=== PATIENT | male | born 1955 | race Caucasian/White ===

== ENCOUNTER 2020-06-22 09:23 | Inpatient (IN) | payer SELFPAY ==
[~2020-06-22] VITALS: Ht 172.7 cm; Wt 89.7 kg
[2020-06-22] VITALS (9 sets, daily range): BP systolic 145–175; BP diastolic 63–98
[2020-06-22] MEDS ORDERED: LABETALOL 20 MG/4 ML DISP.SYRIN. IVP ONE (09:45)
[2020-06-22 10:00] LABS: BASO # 0.1 x10^3/uL (0.0-0.2); BASO % 1 % (0-3); EOS # 0.2 x10^3/uL (0.0-0.7); EOS % 2 % (0-3); HEMATOCRIT 54.7 % (39.0-53.0); HEMOGLOBIN 18.5 g/dL (13.0-17.5); LYMPH # 1.1 x10^3/uL (1.0-4.8); LYMPH % 8 % (24-48); MEAN CORPUSCULAR HEMOGLOBIN 27 pg (25-35); MEAN CORPUSCULAR HGB CONC 34 g/dL (31-37); MEAN CORPUSCULAR VOLUME 80 fL (79-100); MONO # 1.2 x10^3/uL (0.0-1.1); MONO % 9 % (0-9); NEUT # 11.1 x10^3/uL (1.8-7.7); NEUT % 81 % (31-73); PLATELET COUNT 622 x10^3/uL (140-400); RED BLOOD COUNT 6.81 x10^6/uL (4.30-5.70); RED CELL DISTRIBUTION WIDTH 14.7 % (11.5-14.5); WHITE BLOOD COUNT 13.6 x10^3/uL (4.0-11.0)
--- NOTE | 2020-06-22 10:05 | PHYS DOC ---
General Adult EDM: Chief Complaint: UPPER EXTREMITY PAIN HPI: HPI: Patient is a 65 year old male with no significant medical history presenting today complaining of difficulty moving the left upper extremity, symptoms began yesterday when he woke up in the morning. Patient is also complaining of weakne ss to the left upper extremity. Patient denies any injuries. Denies any chest pain or shortness of breath. Denies any pain to the left upper extremity. Review of Systems: Review of Systems: Constitutional: Denies fever or chills. [] Eyes: Denies change in visual acuity. [] HENT: Denies nasal congestion or sore throat. [] Respiratory: Denies cough or shortness of breath. [] Cardiovascular: Denies chest pain or edema. [] GI: Denies abdominal pain, nausea, vomiting, bloody stools or diarrhea. [] : Denies dysuria. [] Musculoskeletal: Reports weakness and difficulty moving the left upper extremity, denies back pain or joint pain. [] Integument: Denies rash. [] Neurologic: Denies headache, focal weakness or sensory changes. [] Psychiatric: Denies depression or anxiety. [] Heart Score: Risk Factors: Risk Factors: DM, Current or recent (<one month) smoker, HTN, HLP, family history of CAD, obesity. Risk Scores: Score 0 - 3: 2.5% MACE over next 6 weeks - Discharge Home Score 4 - 6: 20.3% MACE over next 6 weeks - Admit for Clinical Observation Score 7 - 10: 72.7% MACE over next 6 weeks - Early Invasive Strategies Current Medications: Current Medications Medications (Trade) Dose Ordered Sig/[facility] Start Time Stop Time Status Last Admin Dose Admin Labetalol HCl (Normodyne Iv Push) 10 mg 1X ONCE 06/22/20 09:45 06/22/20 09:46 UNV Physical Exam: PE: Constitutional: Well developed, well nourished, no acute distress, non-toxic appearance. [] HENT: Normocephalic, atraumatic, bilateral external ears normal, oropharynx moist, no oral exudates, nose normal. Poor dentition Eyes: PERRLA, EOMI, conjunctiva normal, no discharge. [] Neck: Normal range of motion, no tenderness, supple, no stridor. [] Cardiovascular:Heart rate regular rhythm, no murmur [] Lungs & Thorax: Bilateral breath sounds clear to auscultation [] Abdomen: Bowel sounds normal, soft, no tenderness, no masses, no pulsatile masses. [] Skin: Warm, dry, no erythema, no rash. [] Back: No tenderness, no CVA tenderness. [] Extremities: No tenderness, no cyanosis, no clubbing, ROM intact, trace edema noted to the left upper extremity, 3/5 strength of the left upper extremity, 5/5 strength to the right upper extremity. Limited range of motion to the left upper extremity. Neurologic: Alert and oriented X 3, normal motor function, normal sensory function, no focal deficits noted. Cranial nerves II through XII intact Psychologic: Affect normal, judgement normal, mood normal. [] EKG: EK interpreted by Dr. Aaron sinus rhythm HR 75 no STEMI Radiology/Procedures: Radiology/Procedures: []PROCEDURE: CT HEAD WO CONTRAST EXAM: CT Head without IV contrast CLINICAL HISTORY: Reason: left arm weakness COMPARISON: None. TECHNIQUE: Routine CT of the head without contrast. PQRS compliance statement - One or more of the following individualized dose reduction techniques were utilized for this study: 1. Automated exposure control 2. Adjustment of the mA and/or kV according to patient size 3. Use of iterative reconstruction technique FINDINGS: There is no evidence of hemorrhage, mass or extra-axial fluid collection. Focal low-attenuation at the left posterior occipital region, with mild associated insufflation likely from prior infarct. Day-white differentiation is otherwise maintained with no evidence of edema. Subcortical, periventricular as well as deep white matter hypoattenuation likely changes of chronic small vessel disease. There is no mass effect or shift of the intracranial structures. The ventricles, basilar cisterns and cortical sulci are normal in size and configuration for the patients stated age. The cerebellum and brainstem are unremarkable. The calvarium demonstrates no evidence of fracture or focal lesion. There is normal aeration of the visualized paranasal sinuses and mastoid air cells. The visualized portions of the orbits are normal. Debris is seen within the right external auditory canal. IMPRESSION: 1. No evidence for acute intracranial process. 2. Focal encephalomalacia with loss of paul-white differentiation in the left occipital region likely from prior infarct. If there is clinical concern for acute on chronic infarct, MRI is recommended. 3. White matter changes likely of chronic small vessel disease. Electronically signed by: Addy Barillas MD (06/22/2020 10:39 AM) [id number] DICTATED and SIGNED BY: ADDY BARILLAS MD DATE: 06/22/20 [id number] 0 PROCEDURE: PORTABLE CHEST 1V AP chest. HISTORY: Left arm weakness AP view was taken of the chest. There is no pneumothorax or pleural effusion. Heart is normal in size. There are no acute infiltrates. IMPRESSION: 1. No acute infiltrates. Electronically signed by: Zack Novoa MD (06/22/2020 10:13 AM) [id number] DICTATED and SIGNED BY: ZACK NOVOA MD DATE: 06/22/20 [id number] 0 Course & Med Decision Making: Course & Med Decision Making Pertinent Labs and Imaging studies reviewed. (See chart for details) This is a 65-year-old male patient presenting to the ED today complaining of difficulty moving the left upper extremity as well as weakness to the left upper extremity that he noted yesterday in the morning when he woke up. Stroke scale 2. CT of the head is negative for any acute findings. CBC with a WBC of 13.6, hemoglobin 18.5, hematocrit 54.7. Creatinine 1.5, BUN is normal. Chest x-ray is negative. Blood pressure on arrival to the ED 243/125 with a heart rate of 75, no previous history of hypertension the patient does not see a primary care doctor. Patient was given labetalol. Blood pressure continued to stay high at 210/123 with a heart rate of 75 Started on the cardiac pain drip. Spoke with Dr. Hand who accepted patient for admission. [address] Gordon who stated he will order an MRI on patient Dr. Aaron made aware of patient's condition Radiologist called stating patient has right CVA noted on MRI of the brain. [address] Gordon regarding patient's CVA. Dragon Disclaimer: Dragantoine Disclaimer: This electronic medical record was generated, in whole or in part, using a voice recognition dictation system. NIHSS Stroke Scale NIH Stroke Scale: NIH Stroke Scale Response (Comments) Value Level of Consciousness: 0 Alert/Responsive 0 LOC Questions: 0 Answers both correctly 0 Best Gaze: 0 Normal 0 Visual: 0 No visual loss 0 Facial Palsy: 0 Normal, symmetrical 0 Motor - Left Arm 2 Some effort 2 Motor - Right Arm 0 No drift 0 Motor - Left Leg 0 No drift 0 Motor: Right Leg 0 No drift 0 Limb Ataxia: 0 Absent 0 Sensory: 0 No loss 0 Best Language: 0 Normal 0 Dysathria: 0 Normal 0 Extinction and Inattention: 0 Normal 0 Total 2 Departure Departure Impression: Primary Impression: Hypertensive urgency Additional Impressions: RADHA (acute kidney injury) Left arm weakness Disposition: 09 ADMITTED INPT THIS HOSP Condition: STABLE Referrals: NO PCP (PCP) NABIL CHANDLER APRN Jun 22, 2020 10:05
[2020-06-22 10:08] LABS: CALCIUM 9.1 mg/dL (8.5-10.1); CREATININE 1.8 mg/dL (0.7-1.3); GFR 38.3
[2020-06-22 10:12] LABS: ALBUMIN 4.3 g/dL (3.4-5.0); ALBUMIN/GLOBULIN RATIO 1.3 (1.0-1.7); MAGNESIUM 2.2 mg/dL (1.8-2.4); TOTAL BILIRUBIN 1.9 mg/dL (0.2-1.0); TOTAL PROTEIN 7.7 g/dL (6.4-8.2)
[2020-06-22 10:18] LABS: PROTHROMBIN TIME PATIENT 14.2 SEC (11.7-14.0)
--- NOTE | 2020-06-22 10:55 | RAD ---
EXAM: CT Head without IV contrast CLINICAL HISTORY: Reason: left arm weakness COMPARISON: None. TECHNIQUE: Routine CT of the head without contrast. PQRS compliance statement - One or more of the following individualized dose reduction techniques wer e utilized for this study: 1. Automated exposure control 2. Adjustment of the mA and/or kV according to patient size 3. Use of iterative reconstruction technique FINDINGS: There is no evidence of hemorrhage, mass or extra-axial fluid collection. Focal low-attenuation at the left posterior occipital region, with mild associated insufflation likel y from prior infarct. Day-white differentiation is otherwise maintained with no evidence of edema. S ubcortical, periventricular as well as deep white matter hypoattenuation likely changes of chronic sm all vessel disease. There is no mass effect or shift of the intracranial structures. The ventricles, basilar cisterns and cortical sulci are normal in size and configuration for the soha ents stated age. The cerebellum and brainstem are unremarkable. The calvarium demonstrates no evidence of fracture or focal lesion. There is normal aeration of the visualized paranasal sinuses and mastoid air cells. The visualized portions of the orbits are normal. Debris is seen within the right external auditory c anal. IMPRESSION: 1. No evidence for acute intracranial process. 2. Focal encephalomalacia with loss of paul-white differentiation in the left occipital region likel y from prior infarct. If there is clinical concern for acute on chronic infarct, MRI is recommended. 3. White matter changes likely of chronic small vessel disease. Electronically signed by: Addy Mendiola MD (06/22/2020 10:39 AM) [id number]
--- NOTE | 2020-06-22 10:55 | RAD ---
AP chest. HISTORY: Left arm weakness AP view was taken of the chest. There is no pneumothorax or pleural effusion. Heart is normal in size . There are no acute infiltrates. IMPRESSION: 1. No acute infiltrates. Electronically signed by: Zack Novoa MD (06/22/2020 10:13 AM) [id number]
[2020-06-22 12:50] LABS: BILIRUBIN,URINE NEGATIVE (NEG); CLARITY,URINE CLEAR; COLOR,URINE YELLOW; NITRITE,URINE NEGATIVE (NEG); PH,URINE 5.5 (<5.0-8.0); PROTEIN,URINE NEGATIVE (NEG-TRACE); UROBILINOGEN,URINE 0.2 mg/dL (0.2 mg/dL)
[2020-06-22 12:57] LABS: BARBITURATES NEG (NEG); BENZODIAZEPINES NEG (NEG); CANNABINOIDS NEG (NEG); COCAINE NEG (NEG); METHADONE NEG (NEG); OPIATES NEG (NEG); PHENCYCLIDINE NEG (NEG)
[2020-06-22 13:00] LABS: AMPHETAMINE/METHAMPHETAMINE NEG (NEG)
[2020-06-22 13:03] LABS: AMORPHOUS SEDIMENT,UR PRESENT /HPF
[2020-06-22 13:04] LABS: BACTERIA,URINE 0 /HPF (0-FEW); RBC,URINE 0 /HPF (0-2); WBC,URINE 0 /HPF (0-4)
[2020-06-22] MEDS ORDERED: MAG HYDROX/ALUMINUM HYD/SIMETH 30 ML ORAL.SUSP PO PRN (13:15)
[2020-06-22] MEDS ORDERED: MAGNESIUM HYDROXIDE 2,400 MG/30 ML ORAL.SUSP. PO PRN (13:15)
[2020-06-22] MEDS ORDERED: ACETAMINOPHEN 325 MG TABLET. PO PRN ×2 (13:15→14:45)
[2020-06-22] MEDS ORDERED: CALCIUM CARBONATE 500 MG TAB.CHEW PO PRN (13:15)
[2020-06-22] MEDS ORDERED: BISACODYL 10 MG SUPP.RECT. PR PRN (13:15)
[2020-06-22] MEDS ORDERED: ZOLPIDEM 5 MG TABLET. PO PRN (13:15)
[2020-06-22] MEDS ORDERED: ONDANSETRON PF 4 MG/2 ML VIAL. IVP PRN (13:15)
--- NOTE | 2020-06-22 13:15 | PDOC1 ---
History and Physical Date of Admission Date of Admission DATE: 06/22/20 TIME: 13:02 Identification/Chief Complaint Chief Complaint Left arm weakness Source Source: Chart review, Patient History of Present Illness History of Present Illness Patient is a 65-year-old male with no stated past medical history who presents to the ER for evaluation of left arm weakness since yesterday morning. He denies any injury or history of similar symptoms. Neurology was consulted in the ED and patient received an MRI showing small territory acute infarcts identified in the right perirolandic gyri, right montano radiata, right middle frontal gyrus and medial right occipital lobe; there is associated cytotoxic edema without significant mass effect or hemorrhage. Will admit patient for further medical management. Past Medical History Past Medical History Denies past medical history Past Surgical History Past Surgical History Denies past surgical history Family History Family History Denies significant family history Social History Smoke: No ALCOHOL: rare Drugs: None Current Medications Current Medications Current Medications Labetalol HCl (Normodyne Iv Push) 10 mg 1X ONCE IVP Last administered on 06/22/20at 10:26; Start 06/22/20 at 09:45; Stop 06/22/20 at 10:04; Status DC Nicardipine HCl 50 mg/Sodium Chloride 250 ml @ 25 mls/hr CONT PRN IV SEE I/O RECORD Last administered on 06/22/20at 12:38; Start 06/22/20 at 12:07 Aspirin (Dax Aspirin) 325 mg 1X ONCE PO ; Start 06/22/20 at 13:00; Stop 06/22/20 at 13:01; Status UNV Allergies Allergies: Coded Allergies: No Known Drug Allergies (Unverified , 06/22/20) ROS Review of System GENERAL: No history of weight change, weakness or fevers. SKIN: No bruising, hair changes or rashes. EYES: No blurred, double or loss of vision. NOSE AND THROAT: No history of nosebleeds, hoarseness or sore throat. HEART: Denies chest pain, denies palpitations. LUNGS: Denies cough, hemoptysis, wheezing or shortness of breath. GASTROINTESTINAL: Denies nausea, vomiting, abdominal pain. GENITOURINARY: Denies dysuria, frequency, urgency, hematuria. NEUROLOGIC: Left upper extremity weakness. Denies history of numbness, tingling, or tremor. PSYCHIATRIC: Denies anxiety, denies depression. ENDOCRINE: No history of heat or cold intolerance, polyuria or polydipsia. EXTREMITIES: Denies muscle weakness, joint pain, pain on walking or stiffness. Physical Exam Physical Exam General: Alert, Oriented X3, Cooperative, No acute distress HEENT: PERRLA, EOMI Lungs: Clear to auscultation, Normal air movement Heart: RRR, no murmurs Cardiovascular: S1, S2 Abdomen: Normal bowel sounds, Soft, No tenderness Extremities: No clubbing, No cyanosis Skin: No rashes, No significant lesion Neuro: Left upper extremity strength 2/5. Normal speech, Normal tone, Sensation intact Psych/Mental Status: Mental status NL, Mood NL Vitals Vitals Vital Signs Date Time Temp Pulse Resp B/P (MAP) Pulse Ox O2 Delivery O2 Flow Rate FiO2 06/22/20 12:39 75 18 210/123 (152) 95 Room Air 06/22/20 10:03 97.3 97.3 Labs Labs Laboratory Tests Test 06/22/20 09:42 06/22/20 12:25 06/22/20 12:30 06/22/20 12:40 White Blood Count 13.6 x10^3/uL (4.0-11.0) Red Blood Count 6.81 x10^6/uL (4.30-5.70) Hemoglobin 18.5 g/dL (13.0-17.5) Hematocrit 54.7 % (39.0-53.0) Mean Corpuscular Volume 80 fL (79-100) Mean Corpuscular Hemoglobin 27 pg (25-35) Mean Corpuscular Hemoglobin Concent 34 g/dL (31-37) Red Cell Distribution Width 14.7 % (11.5-14.5) Platelet Count 622 x10^3/uL (140-400) Neutrophils (%) (Auto) 81 % (31-73) Lymphocytes (%) (Auto) 8 % (24-48) Monocytes (%) (Auto) 9 % (0-9) Eosinophils (%) (Auto) 2 % (0-3) Basophils (%) (Auto) 1 % (0-3) Neutrophils # (Auto) 11.1 x10^3/uL (1.8-7.7) Lymphocytes # (Auto) 1.1 x10^3/uL (1.0-4.8) Monocytes # (Auto) 1.2 x10^3/uL (0.0-1.1) Eosinophils # (Auto) 0.2 x10^3/uL (0.0-0.7) Basophils # (Auto) 0.1 x10^3/uL (0.0-0.2) Prothrombin Time 14.2 SEC (11.7-14.0) Prothromb Time International Ratio 1.1 (0.8-1.1) Activated Partial Thromboplast Time 37 SEC (24-38) Sodium Level 137 mmol/L (136-145) Potassium Level 4.0 mmol/L (3.5-5.1) Chloride Level 100 mmol/L (98-107) Carbon Dioxide Level 26 mmol/L (21-32) Anion Gap 11 (6-14) Blood Urea Nitrogen 24 mg/dL (8-26) Creatinine 1.8 mg/dL (0.7-1.3) Estimated GFR (Cockcroft-Gault) 38.3 BUN/Creatinine Ratio 13 (6-20) Glucose Level 111 mg/dL (70-99) Calcium Level 9.1 mg/dL (8.5-10.1) Magnesium Level 2.2 mg/dL (1.8-2.4) Total Bilirubin 1.9 mg/dL (0.2-1.0) Aspartate Amino Transf (AST/SGOT) 17 U/L (15-37) Alanine Aminotransferase (ALT/SGPT) 20 U/L (16-63) Alkaline Phosphatase 93 U/L (46-116) Troponin I Quantitative 0.022 ng/mL (0.000-0.055) 0.034 ng/mL (0.000-0.055) AZ-Pxq-G-Type Natriuretic Peptide 2274 pg/mL (0-124) Total Protein 7.7 g/dL (6.4-8.2) Albumin 4.3 g/dL (3.4-5.0) Albumin/Globulin Ratio 1.3 (1.0-1.7) Thyroid Stimulating Hormone (TSH) 1.818 uIU/mL (0.358-3.74) Urine Opiates Screen Neg (NEG) Urine Methadone Screen Neg (NEG) Urine Barbiturates Neg (NEG) Urine Phencyclidine Screen Neg (NEG) Urine Amphetamine/Methamphetamine Neg (NEG) Urine Benzodiazepines Screen Neg (NEG) Urine Cocaine Screen Neg (NEG) Urine Cannabinoids Screen Neg (NEG) Urine Ethyl Alcohol Neg (NEG) Ethyl Alcohol Level < 10 mg/dL (0-10) Laboratory Tests Test 06/22/20 09:42 06/22/20 12:25 06/22/20 12:30 06/22/20 12:40 White Blood Count 13.6 x10^3/uL (4.0-11.0) Red Blood Count 6.81 x10^6/uL (4.30-5.70) Hemoglobin 18.5 g/dL (13.0-17.5) Hematocrit 54.7 % (39.0-53.0) Mean Corpuscular Volume 80 fL (79-100) Mean Corpuscular Hemoglobin 27 pg (25-35) Mean Corpuscular Hemoglobin Concent 34 g/dL (31-37) Red Cell Distribution Width 14.7 % (11.5-14.5) Platelet Count 622 x10^3/uL (140-400) Neutrophils (%) (Auto) 81 % (31-73) Lymphocytes (%) (Auto) 8 % (24-48) Monocytes (%) (Auto) 9 % (0-9) Eosinophils (%) (Auto) 2 % (0-3) Basophils (%) (Auto) 1 % (0-3) Neutrophils # (Auto) 11.1 x10^3/uL (1.8-7.7) Lymphocytes # (Auto) 1.1 x10^3/uL (1.0-4.8) Monocytes # (Auto) 1.2 x10^3/uL (0.0-1.1) Eosinophils # (Auto) 0.2 x10^3/uL (0.0-0.7) Basophils # (Auto) 0.1 x10^3/uL (0.0-0.2) Prothrombin Time 14.2 SEC (11.7-14.0) Prothromb Time International Ratio 1.1 (0.8-1.1) Activated Partial Thromboplast Time 37 SEC (24-38) Sodium Level 137 mmol/L (136-145) Potassium Level 4.0 mmol/L (3.5-5.1) Chloride Level 100 mmol/L (98-107) Carbon Dioxide Level 26 mmol/L (21-32) Anion Gap 11 (6-14) Blood Urea Nitrogen 24 mg/dL (8-26) Creatinine 1.8 mg/dL (0.7-1.3) Estimated GFR (Cockcroft-Gault) 38.3 BUN/Creatinine Ratio 13 (6-20) Glucose Level 111 mg/dL (70-99) Calcium Level 9.1 mg/dL (8.5-10.1) Magnesium Level 2.2 mg/dL (1.8-2.4) Total Bilirubin 1.9 mg/dL (0.2-1.0) Aspartate Amino Transf (AST/SGOT) 17 U/L (15-37) Alanine Aminotransferase (ALT/SGPT) 20 U/L (16-63) Alkaline Phosphatase 93 U/L (46-116) Troponin I Quantitative 0.022 ng/mL (0.000-0.055) 0.034 ng/mL (0.000-0.055) ZC-Eyb-M-Type Natriuretic Peptide 2274 pg/mL (0-124) Total Protein 7.7 g/dL (6.4-8.2) Albumin 4.3 g/dL (3.4-5.0) Albumin/Globulin Ratio 1.3 (1.0-1.7) Thyroid Stimulating Hormone (TSH) 1.818 uIU/mL (0.358-3.74) Urine Opiates Screen Neg (NEG) Urine Methadone Screen Neg (NEG) Urine Barbiturates Neg (NEG) Urine Phencyclidine Screen Neg (NEG) Urine Amphetamine/Methamphetamine Neg (NEG) Urine Benzodiazepines Screen Neg (NEG) Urine Cocaine Screen Neg (NEG) Urine Cannabinoids Screen Neg (NEG) Urine Ethyl Alcohol Neg (NEG) Ethyl Alcohol Level < 10 mg/dL (0-10) Images Images EXAMINATION: Magnetic resonance imaging (MRI) of the brain and brainstem without contrast 06/22/2020 1:09 PM HISTORY: Left arm weakness TECHNIQUE: Multiplanar multi-weighted MRI of the brain and brainstem was performed without intravenous contrast using the general brain protocol. COMPARISON: None available. FINDINGS: The scalp and calvarium are normal. The superior sagittal sinus demonstrates normal venous flow. The corpus callosum is normal in shape and signal intensity. The posterior fossa is unremarkable. The pituitary and sella are normal. The brainstem and craniocervical junction are unremarkable. There is diffusion signal hyperintensity involving the right perirolandic gyri and right centrum semiovale as well as a small focus within the right middle frontal gyrus and medial right occipital lobe. There is corresponding low signal on ADC maps compatible with acute infarct. There is FLAIR and T2 signal hyperintensity compatible cytotoxic edema. There are T2/FLAIR signal hyperintense foci in the periventricular and subcortical white matter with areas of confluence most suggestive of moderate chronic small vessel ischemic changes. Remote lacunar infarct identified in the left montano radiata. Remote lacunar infarct identified in the bilateral thalami. There is susceptibility artifact identified in the head of the right caudate nucleus which may represent an area of microhemorrhage versus cavernoma. Ventricles, sulci and basal cisterns are prominent compatible with mild to moderate generalized cerebral volume loss. The paranasal sinuses are normal. The visualized portions of the mastoids are unremarkable. The orbits appear normal. Normal flow voids are demonstrated in the carotid arteries and basilar artery. IMPRESSION: 1. Small territory acute infarcts identified in the right perirolandic gyri, right montaon radiata, right middle frontal gyrus and medial right occipital lobe. There is associated cytotoxic edema without significant mass effect or hemorrhage. 2. Remote lacunar infarcts identified in the left montano radiata and bilateral thalami. Remote hemorrhagic infarct identified in the right caudate head. 3. Mild to moderate generalized cerebral volume loss. There are T2/FLAIR signal hyperintense foci in the periventricular and subcortical white matter with areas of confluence most suggestive of moderate chronic small vessel ischemic changes. EXAM: CT Head without IV contrast CLINICAL HISTORY: Reason: left arm weakness COMPARISON: None. TECHNIQUE: Routine CT of the head without contrast. PQRS compliance statement - One or more of the following individualized dose reduction techniques were utilized for this study: 1. Automated exposure control 2. Adjustment of the mA and/or kV according to patient size 3. Use of iterative reconstruction technique FINDINGS: There is no evidence of hemorrhage, mass or extra-axial fluid collection. Focal low-attenuation at the left posterior occipital region, with mild associated insufflation likely from prior infarct. Day-white differentiation is otherwise maintained with no evidence of edema. Subcortical, periventricular as well as deep white matter hypoattenuation likely changes of chronic small vessel disease. There is no mass effect or shift of the intracranial structures. The ventricles, basilar cisterns and cortical sulci are normal in size and configuration for the patients stated age. The cerebellum and brainstem are unremarkable. The calvarium demonstrates no evidence of fracture or focal lesion. There is normal aeration of the visualized paranasal sinuses and mastoid air cells. The visualized portions of the orbits are normal. Debris is seen within the right external auditory canal. IMPRESSION: 1. No evidence for acute intracranial process. 2. Focal encephalomalacia with loss of paul-white differentiation in the left occipital region likely from prior infarct. If there is clinical concern for acute on chronic infarct, MRI is recommended. 3. White matter changes likely of chronic small vessel disease. VTE Prophylaxis Ordered VTE Prophylaxis Devices: No VTE Pharmacological Prophylaxi: Yes Assessment/Plan Assessment/Plan Acute CVA Hypertensive urgency RADHA Vasomotor nephropathy Elevated BUN Elevated troponin Plan: Consult placed to neurology; MRI obtained showed small territory acute infarcts identified in the right perirolandic gyri, right montano radiata, right middle frontal gyrus and medial right occipital lobe. There is associated cytotoxic edema without significant mass effect or hemorrhage. Permissive hypertension; labetalol 10 mg as needed; will gradually lower blood pressure after 24 hours with oral antihypertensives, goal 20-25% reduction Will initiate oral antihypertensive medications. BP goal <less than 220/120 mmHg Aspirin received in the ER. Lipid panel pending. IV fluids FEN - Cardiac diet PPX - Lovenox FULL CODE Dispo - inpatient for above Justifications for Admission Other Justification ALEJANDRO SAGASTUME MD Jun 22, 2020 13:15
[2020-06-22] MEDS ORDERED: ASPIRIN 325 MG TABLET PO ONE (13:30)
[2020-06-22] MEDS ORDERED: ONDANSETRON PF 4 MG/2 ML VIAL. IV PRN (13:45)
[2020-06-22] MEDS: ENOXAPARIN 40 MG/0.4 ML SYRINGE. SQ SCH (14:00)
--- NOTE | 2020-06-22 14:27 | RAD ---
EXAMINATION: Magnetic resonance imaging (MRI) of the cervical spine without contrast 06/22/2020 1:09 PM HISTORY: Left arm weakness TECHNIQUE: Multiplanar multi-weighted MRI of the cervical spine was performed without intravenous con trast using the standard cervical spine protocol. Contrast information: None administered COMPARISON: None available. FINDINGS: There is minimal retrolisthesis of C4 on C5, C5 on C6 and C6 on C7. There is low T1 signal intensity involving the marrow. No acute fracture is identified; however, if trauma is suspected, a CT scan wou ld be a more sensitive examination for fractures. The craniocervical junction is normal. The visual ized portions of the skull base and the posterior fossa are normal. The spinal cord demonstrates nor mal signal intensity on all sequences. Mild disc height loss at C4-C5, C5-C6 and C6-C7 with associat ed disc desiccation. No soft tissue abnormality is identified. Normal signal voids are present in th e vertebral arteries. Mild generalized cerebral volume loss. C2-C3: There is mild disc bulge. Moderate left and moderate facet arthropathy. Moderate left neurofor aminal stenosis. No spinal canal stenosis. C3-C4: There is a mild disc bulge. Mild facet arthropathy, left greater than right. Mild uncovertebra l joint disease. Mild left neuroforaminal stenosis. Mild spinal canal stenosis without deformity of t he cord or cord signal alteration. C4-C5: There is a mild sequential disc bulge. Mild facet arthropathy. Mild uncovertebral joint diseas e. Mild right neural foraminal stenosis. Mild spinal canal stenosis. C5-C6: There is a posterior disc osteophyte complex. Mild facet arthropathy. Mild uncovertebral joint disease. Moderate right and mild left neuroforaminal stenosis. Mild spinal canal stenosis. C6-C7: There is a posterior disc osteophyte complex with central disc protrusion. Mild facet arthropa thy. Mild uncovertebral joint disease. Mild bilateral neuroforaminal stenosis. Mild spinal canal sten osis without deformity of the cord or cord signal alteration. C7-T1: Disc is normal in configuration. No neuroforaminal or spinal canal stenosis. IMPRESSION: 1. Mild degenerative changes of the cervical spine as described in detail above. 2. Low T1 signal intensity involving the marrow which is nonspecific and may be associated with chron ic anemia, obesity or smoking history. Electronically signed by: Matilde Roche MD (06/22/2020 2:24 PM) [id number]
--- NOTE | 2020-06-22 14:32 | RAD ---
EXAMINATION: Magnetic resonance imaging (MRI) of the brain and brainstem without contrast 06/22/2020 1: 09 PM HISTORY: Left arm weakness TECHNIQUE: Multiplanar multi-weighted MRI of the brain and brainstem was performed without intravenou s contrast using the general brain protocol. COMPARISON: None available. FINDINGS: The scalp and calvarium are normal. The superior sagittal sinus demonstrates normal venous flow. The corpus callosum is normal in shape and signal intensity. The posterior fossa is unremarkable. The p ituitary and sella are normal. The brainstem and craniocervical junction are unremarkable. There is diffusion signal hyperintensity involving the right perirolandic gyri and right centrum semi ovale as well as a small focus within the right middle frontal gyrus and medial right occipital lobe. There is corresponding low signal on ADC maps compatible with acute infarct. There is FLAIR and T2 s ignal hyperintensity compatible cytotoxic edema. 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 Remote lacunar infarct identified in the left montano radiata. Jam te lacunar infarct identified in the bilateral thalami. There is susceptibility artifact identified i n the head of the right caudate nucleus which may represent an area of microhemorrhage versus caverno ma. Ventricles, sulci and basal cisterns are prominent compatible with mild to moderate generalized cerebral volume loss. The paranasal sinuses are normal. The visualized portions of the mastoids are unremarkable. The orbi ts appear normal. Normal flow voids are demonstrated in the carotid arteries and basilar artery. IMPRESSION: 1. Small territory acute infarcts identified in the right perirolandic gyri, right montano radiata, ri ght middle frontal gyrus and medial right occipital lobe. There is associated cytotoxic edema without significant mass effect or hemorrhage. 2. Remote lacunar infarcts identified in the left montano radiata and bilateral thalami. Remote hemorr hagic infarct identified in the right caudate head. 3. Mild to moderate generalized cerebral volume loss. There are T2/FLAIR signal hyperintense foci in the periventricular and subcortical white matter with areas of confluence most suggestive of moderate chronic small vessel ischemic changes. FOR INTERNAL CODING PURPOSES Critical result: Findings discussed with Beatrice Edgar at 06/22/2020 2:27 PM. RESULT CODE: (C) Electronically signed by: Matilde Roche MD (06/22/2020 2:29 PM) [id number]
--- NOTE | 2020-06-22 14:43 | EKG ---
[facility] [address] [place] [address] Test Date: 2020-06-22 Test Time: 10:12:06 Pat Name: STUART WHEELER Department: Room: 107 1 Gender: M Accounts Receivable Supervisor: : [id number] Requested By: NABIL CHANDLER Order Number: [id number] Reading MD: Johan Devi Measurements Intervals [place] Rate: 75 P: 13 WA: 154 QRS: -38 QRSD: 118 T: 110 QT: 380 QTc: 427 Interpretive Statements SINUS RHYTHM LEFT ATRIAL ABNORMALITY ABNORMAL LEFT AXIS DEVIATION LEFT ANTERIOR FASCICULAR BLOCK LVH WITH REPOLARIZATION ABNORMALITY QRS(T) CONTOUR ABNORMALITY CONSIDER INFERIOR MYOCARDIAL DAMAGE ABNORMAL ECG Electronically Signed On 06-30-2020 10:19:56 [employer] by Johan Devi
[2020-06-22] MEDS ORDERED: ASPIRIN RECTAL 300 MG SUPP. PR PRN (14:45)
[2020-06-22] MEDS: ASPIRIN ENTERIC COATED 325 MG TABLET.DR. PO SCH (16:43)
--- NOTE | 2020-06-22 17:39 | PDOC2 ---
NEUROLOGY CONSULT Date of Service DOS: DATE: 06/22/20 TIME: 17:30 Referring Physician Referring Physician: Dr. Hand Source Source: Caregiver (son, daughter), Chart review, Patient History of Present Illness History of Present Illness The patient is a 65-year-old male who presented to emergency department for 2 days of left arm weakness. I discussed the case with Ms. Edgar. The patient was outside the window for alteplase or clot retrieval. His blood pressure was high. The distribution of weakness was very unusual for stroke so I also ordered an MRI of the cervical spine. The brain study does show a stroke as reviewed below, cervical spine is negative, as reviewed below. Patient denies headache, diplopia, dysphagia, dysarthria, or weakness elsewhere. There is no prior history of stroke, migraine, seizure, or head injury. He has not checked with a doctor in several years, he does not know anything about his blood pressure, cholesterol, heart, or presence of diabetes. Past Medical History Cardiovascular: No pertinent hx Pulmonary: No pertinent hx Endocrine: No pertinent hx Past Surgical History Past Surgical History: No pertinent history Family History Family History: CAD Social History Social History , quit smoking several years ago, no alcohol, delivery of shopping news Current Medications Current Medications Current Medications Labetalol HCl (Normodyne Iv Push) 10 mg 1X ONCE IVP Last administered on 06/22/20at 10:26; Start 06/22/20 at 09:45; Stop 06/22/20 at 10:04; Status DC Nicardipine HCl 50 mg/Sodium Chloride 250 ml @ 25 mls/hr CONT PRN IV SEE I/O RECORD Last administered on 06/22/20at 12:38; Start 06/22/20 at 12:07; Stop 06/22/20 at 14:45; Status DC Aspirin (Dax Aspirin) 325 mg 1X ONCE PO Last administered on 06/22/20at 14:46; Start 06/22/20 at 13:30; Stop 06/22/20 at 13:31; Status DC Ondansetron HCl (Zofran) 4 mg PRN Q6HRS PRN IVP NAUSEA/VOMITING; Start 06/22/20 at 13:15 Al Hydroxide/Mg Hydroxide (Mylanta Plus Xs) 30 ml PRN Q3HRS PRN PO HEARTBURN / GAS; Start 06/22/20 at 13:15 Calcium Carbonate/ Glycine (Tums) 500 mg PRN Q3HRS PRN PO UPSET STOMACH; Start 06/22/20 at 13:15 Zolpidem Tartrate (Ambien) 5 mg PRN QHS PRN PO INSOMNIA, MAY REPEAT IN 1HR; Start 06/22/20 at 13:15 Acetaminophen (Tylenol) 650 mg PRN Q6HRS PRN PO Headaches, Temp > 101.5F; Start 06/22/20 at 13:15 Magnesium Hydroxide (Milk Of Magnesia) 2,400 mg PRN Q12HR PRN PO CONSTIPATION; Start 06/22/20 at 13:15 Bisacodyl (Dulcolax Supp) 10 mg PRN DAILY PRN [place] CONSTIPATION; Start 06/22/20 at 13:15 Enoxaparin Sodium (Lovenox 40mg Syringe) 40 mg Q24H SQ Last administered on 06/22/20at 14:00; Start 06/22/20 at 14:00 Ondansetron HCl (Zofran) 4 mg PRN Q8HRS PRN IV NAUSEA/VOMITING; Start 06/22/20 at 13:45; Stop 06/22/20 at 13:37; Status DC Nicardipine HCl 50 mg/Sodium Chloride 250 ml @ 0 mls/hr CONT PRN PRN IV PER PROTOCOL; Start 06/22/20 at 14:45 Atorvastatin Calcium (Lipitor) 80 mg QHS PO ; Start 06/22/20 at 21:00 Acetaminophen (Tylenol) 650 mg PRN Q6HRS PRN PO MILD PAIN / TEMP > 100.3'F; Start 06/22/20 at 14:45 Aspirin (Ecotrin) 325 mg DAILYWBKFT PO Last administered on 06/22/20at 16:43; Start 06/22/20 at 15:00 Aspirin (Aspirin Rectal Supp) 300 mg PRN DAILY PRN AK IF UNABLE TO TAKE PO; Start 06/22/20 at 14:45 Amlodipine Besylate (Norvasc) 10 mg DAILY PO ; Start 06/22/20 at 17:30 Hydrochlorothiazide (Hydrodiuril) 25 mg DAILY PO ; Start 06/22/20 at 17:30 Allergies Allergies: Coded Allergies: No Known Drug Allergies (Unverified , 06/22/20) ROS Review of System Negative for fever, chills, weight loss, shortness of breath, chest pain, indigestion, hematochezia, melena, and dysuria. Full 14-point review of systems is negative. Physical Exam Physical Examination General: Well-developed, well-nourished white male in no acute distress HEENT: Normocephalic andatraumatic.Temporal arteriespulsatile and nontender. Neck: Supple without bruit, no meningismus Musculoskeletal: Stability:see neurologic. Gait exam:see neurologic. Tone:see neurologic.Strength:see neurologic. Neurological: Mental Status:intact, orientation, memory, attention span/concentration, language, fund of knowledge normal. Cranial Nerves:Pupils equal and reactive to light, extraocular movements areintact, visual martinez are full to confrontatio n. Facial sensation is normal. There is no facial asymmetry. Vestibulo-ocular reflex is intact. Palate elevates and tongue protrudes in midline. All other cranial related problems are negative except as mentioned before.Reflexes:2+ and symmetric with flexor plantar responses. Motor:3/5 right arm strength including wrist extensors, otherwise 5/5 strength with normal tone and bulk. Coordination:Finger-nose finger and cjmr-ra-dojq testing are normal, no abnormalities out of proportion to weakness. Rapid alternating movements and fine finger movements are intact. Gait:Not tested. Sensory:Normal pinprick, vibration, light touch, proprioception. Vitals VITALS Vital Signs Date Time Temp Pulse Resp B/P (MAP) Pulse Ox O2 Delivery O2 Flow Rate FiO2 06/22/20 17:00 83 16 145/63 (90) 95 Room Air 06/22/20 16:00 99.0 99.0 Labs Labs Laboratory Tests Test 06/22/20 09:42 06/22/20 12:25 06/22/20 12:30 06/22/20 12:40 White Blood Count 13.6 x10^3/uL (4.0-11.0) Red Blood Count 6.81 x10^6/uL (4.30-5.70) Hemoglobin 18.5 g/dL (13.0-17.5) Hematocrit 54.7 % (39.0-53.0) Mean Corpuscular Volume 80 fL (79-100) Mean Corpuscular Hemoglobin 27 pg (25-35) Mean Corpuscular Hemoglobin Concent 34 g/dL (31-37) Red Cell Distribution Width 14.7 % (11.5-14.5) Platelet Count 622 x10^3/uL (140-400) Neutrophils (%) (Auto) 81 % (31-73) Lymphocytes (%) (Auto) 8 % (24-48) Monocytes (%) (Auto) 9 % (0-9) Eosinophils (%) (Auto) 2 % (0-3) Basophils (%) (Auto) 1 % (0-3) Neutrophils # (Auto) 11.1 x10^3/uL (1.8-7.7) Lymphocytes # (Auto) 1.1 x10^3/uL (1.0-4.8) Monocytes # (Auto) 1.2 x10^3/uL (0.0-1.1) Eosinophils # (Auto) 0.2 x10^3/uL (0.0-0.7) Basophils # (Auto) 0.1 x10^3/uL (0.0-0.2) Prothrombin Time 14.2 SEC (11.7-14.0) Prothromb Time International Ratio 1.1 (0.8-1.1) Activated Partial Thromboplast Time 37 SEC (24-38) Sodium Level 137 mmol/L (136-145) Potassium Level 4.0 mmol/L (3.5-5.1) Chloride Level 100 mmol/L (98-107) Carbon Dioxide Level 26 mmol/L (21-32) Anion Gap 11 (6-14) Blood Urea Nitrogen 24 mg/dL (8-26) Creatinine 1.8 mg/dL (0.7-1.3) Estimated GFR (Cockcroft-Gault) 38.3 BUN/Creatinine Ratio 13 (6-20) Glucose Level 111 mg/dL (70-99) Calcium Level 9.1 mg/dL (8.5-10.1) Magnesium Level 2.2 mg/dL (1.8-2.4) Total Bilirubin 1.9 mg/dL (0.2-1.0) Aspartate Amino Transf (AST/SGOT) 17 U/L (15-37) Alanine Aminotransferase (ALT/SGPT) 20 U/L (16-63) Alkaline Phosphatase 93 U/L (46-116) Troponin I Quantitative 0.022 ng/mL (0.000-0.055) 0.034 ng/mL (0.000-0.055) EJ-Ajk-L-Type Natriuretic Peptide 2274 pg/mL (0-124) Total Protein 7.7 g/dL (6.4-8.2) Albumin 4.3 g/dL (3.4-5.0) Albumin/Globulin Ratio 1.3 (1.0-1.7) Thyroid Stimulating Hormone (TSH) 1.818 uIU/mL (0.358-3.74) Urine Collection Type Unknown Urine Color Yellow Urine Clarity Clear Urine pH 5.5 (<5.0-8.0) Urine Specific [place] 1.010 (1.000-1.030) Urine Protein Negative mg/dL (NEG-TRACE) Urine Glucose (UA) Negative mg/dL (NEG) Urine Ketones (Stick) Negative mg/dL (NEG) Urine Blood Negative (NEG) Urine Nitrite Negative (NEG) Urine Bilirubin Negative (NEG) Urine Urobilinogen Dipstick 0.2 mg/dL (0.2 mg/dL) Urine Leukocyte Esterase Negative (NEG) Urine RBC 0 /HPF (0-2) Urine WBC 0 /HPF (0-4) Urine Amorphous Sediment Present /HPF Urine Bacteria 0 /HPF (0-FEW) Urine Mucus Slight /LPF Urine Opiates Screen Neg (NEG) Urine Methadone Screen Neg (NEG) Urine Barbiturates Neg (NEG) Urine Phencyclidine Screen Neg (NEG) Urine Amphetamine/Methamphetamine Neg (NEG) Urine Benzodiazepines Screen Neg (NEG) Urine Cocaine Screen Neg (NEG) Urine Cannabinoids Screen Neg (NEG) Urine Ethyl Alcohol Neg (NEG) Ethyl Alcohol Level < 10 mg/dL (0-10) Test 06/22/20 16:15 Troponin I Quantitative < 0.017 ng/mL (0.000-0.055) Laboratory Tests Test 06/22/20 09:42 06/22/20 12:25 06/22/20 12:30 06/22/20 12:40 White Blood Count 13.6 x10^3/uL (4.0-11.0) Red Blood Count 6.81 x10^6/uL (4.30-5.70) Hemoglobin 18.5 g/dL (13.0-17.5) Hematocrit 54.7 % (39.0-53.0) Mean Corpuscular Volume 80 fL (79-100) Mean Corpuscular Hemoglobin 27 pg (25-35) Mean Corpuscular Hemoglobin Concent 34 g/dL (31-37) Red Cell Distribution Width 14.7 % (11.5-14.5) Platelet Count 622 x10^3/uL (140-400) Neutrophils (%) (Auto) 81 % (31-73) Lymphocytes (%) (Auto) 8 % (24-48) Monocytes (%) (Auto) 9 % (0-9) Eosinophils (%) (Auto) 2 % (0-3) Basophils (%) (Auto) 1 % (0-3) Neutrophils # (Auto) 11.1 x10^3/uL (1.8-7.7) Lymphocytes # (Auto) 1.1 x10^3/uL (1.0-4.8) Monocytes # (Auto) 1.2 x10^3/uL (0.0-1.1) Eosinophils # (Auto) 0.2 x10^3/uL (0.0-0.7) Basophils # (Auto) 0.1 x10^3/uL (0.0-0.2) Prothrombin Time 14.2 SEC (11.7-14.0) Prothromb Time International Ratio 1.1 (0.8-1.1) Activated Partial Thromboplast Time 37 SEC (24-38) Sodium Level 137 mmol/L (136-145) Potassium Level 4.0 mmol/L (3.5-5.1) Chloride Level 100 mmol/L (98-107) Carbon Dioxide Level 26 mmol/L (21-32) Anion Gap 11 (6-14) Blood Urea Nitrogen 24 mg/dL (8-26) Creatinine 1.8 mg/dL (0.7-1.3) Estimated GFR (Cockcroft-Gault) 38.3 BUN/Creatinine Ratio 13 (6-20) Glucose Level 111 mg/dL (70-99) Calcium Level 9.1 mg/dL (8.5-10.1) Magnesium Level 2.2 mg/dL (1.8-2.4) Total Bilirubin 1.9 mg/dL (0.2-1.0) Aspartate Amino Transf (AST/SGOT) 17 U/L (15-37) Alanine Aminotransferase (ALT/SGPT) 20 U/L (16-63) Alkaline Phosphatase 93 U/L (46-116) Troponin I Quantitative 0.022 ng/mL (0.000-0.055) 0.034 ng/mL (0.000-0.055) KR-Bom-L-Type Natriuretic Peptide 2274 pg/mL (0-124) Total Protein 7.7 g/dL (6.4-8.2) Albumin 4.3 g/dL (3.4-5.0) Albumin/Globulin Ratio 1.3 (1.0-1.7) Thyroid Stimulating Hormone (TSH) 1.818 uIU/mL (0.358-3.74) Urine Collection Type Unknown Urine Color Yellow Urine Clarity Clear Urine pH 5.5 (<5.0-8.0) Urine Specific [place] 1.010 (1.000-1.030) Urine Protein Negative mg/dL (NEG-TRACE) Urine Glucose (UA) Negative mg/dL (NEG) Urine Ketones (Stick) Negative mg/dL (NEG) Urine Blood Negative (NEG) Urine Nitrite Negative (NEG) Urine Bilirubin Negative (NEG) Urine Urobilinogen Dipstick 0.2 mg/dL (0.2 mg/dL) Urine Leukocyte Esterase Negative (NEG) Urine RBC 0 /HPF (0-2) Urine WBC 0 /HPF (0-4) Urine Amorphous Sediment Present /HPF Urine Bacteria 0 /HPF (0-FEW) Urine Mucus Slight /LPF Urine Opiates Screen Neg (NEG) Urine Methadone Screen Neg (NEG) Urine Barbiturates Neg (NEG) Urine Phencyclidine Screen Neg (NEG) Urine Amphetamine/Methamphetamine Neg (NEG) Urine Benzodiazepines Screen Neg (NEG) Urine Cocaine Screen Neg (NEG) Urine Cannabinoids Screen Neg (NEG) Urine Ethyl Alcohol Neg (NEG) Ethyl Alcohol Level < 10 mg/dL (0-10) Test 06/22/20 16:15 Troponin I Quantitative < 0.017 ng/mL (0.000-0.055) Images Images CT Head without IV contrast CLINICAL HISTORY: Reason: left arm weakness COMPARISON: None. TECHNIQUE: Routine CT of the head without contrast. PQRS compliance statement - One or more of the following individualized dose reduction techniques were utilized for this study: 1. Automated exposure control 2. Adjustment of the mA and/or kV according to patient size 3. Use of iterative reconstruction technique FINDINGS: There is no evidence of hemorrhage, mass or extra-axial fluid collection. Focal low-attenuation at the left posterior occipital region, with mild associated insufflation likely from prior infarct. Day-white differentiation is otherwise maintained with no evidence of edema. Subcortical, periventricular as well as deep white matter hypoattenuation likely changes of chronic small vessel disease. There is no mass effect or shift of the intracranial structures. The ventricles, basilar cisterns and cortical sulci are normal in size and configuration for the patients stated age. The cerebellum and brainstem are unremarkable. The calvarium demonstrates no evidence of fracture or focal lesion. There is normal aeration of the visualized paranasal sinuses and mastoid air cells. The visualized portions of the orbits are normal. Debris is seen within the right external auditory canal. IMPRESSION: 1. No evidence for acute intracranial process. 2. Focal encephalomalacia with loss of paul-white differentiation in the left occipital region likely from prior infarct. If there is clinical concern for acute on chronic infarct, MRI is recommended. 3. White matter changes likely of chronic small vessel disease. Magnetic resonance imaging (MRI) of the brain and brainstem without contrast 06/22/2020 1:09 PM HISTORY: Left arm weakness TECHNIQUE: Multiplanar multi-weighted MRI of the brain and brainstem was performed without intravenous contrast using the general brain protocol. COMPARISON: None available. FINDINGS: The scalp and calvarium are normal. The superior sagittal sinus demonstrates normal venous flow. The corpus callosum is normal in shape and signal intensity. The posterior fossa is unremarkable. The pituitary and sella are normal. The brainstem and craniocervical junction are unremarkable. There is diffusion signal hyperintensity involving the right perirolandic gyri and right centrum semiovale as well as a small focus within the right middle frontal gyrus and medial right occipital lobe. There is corresponding low signal on ADC maps compatible with acute infarct. There is FLAIR and T2 signal hyperintensity compatible cytotoxic edema. There are T2/FLAIR signal hyperintense foci in the periventricular and subcortical white matter with areas of confluence most suggestive of moderate chronic small vessel ischemic changes. Remote lacunar infarct identified in the left montano radiata. Remote lacunar infarct identified in the bilateral thalami. There is susceptibility artifact identified in the head of the right caudate nucleus which may represent an area of microhemorrhage versus cavernoma. Ventricles, sulci and basal cisterns are prominent compatible with mild to moderate generalized cerebral volume loss. The paranasal sinuses are normal. The visualized portions of the mastoids are unremarkable. The orbits appear normal. Normal flow voids are demonstrated in t he carotid arteries and basilar artery. IMPRESSION: 1. Small territory acute infarcts identified in the right perirolandic gyri, right montano radiata, right middle frontal gyrus and medial right occipital lobe. There is associated cytotoxic edema without significant mass effect or hemorrhage. 2. Remote lacunar infarcts identified in the left montano radiata and bilateral thalami. Remote hemorrhagic infarct identified in the right caudate head. 3. Mild to moderate generalized cerebral volume loss. There are T2/FLAIR signal hyperintense foci in the periventricular and subcortical white matter with areas of confluence most suggestive of moderate chronic small vessel ischemic changes. agnetic resonance imaging (MRI) of the cervical spine without contrast 06/22/2020 1:09 PM HISTORY: Left arm weakness TECHNIQUE: Multiplanar multi-weighted MRI of the cervical spine was performed without intravenous contrast using the standard cervical spine protocol. Contrast information: None administered COMPARISON: None available. FINDINGS: There is minimal retrolisthesis of C4 on C5, C5 on C6 and C6 on C7. There is low T1 signal intensity involving the marrow. No acute fracture is identified; however, if trauma is suspected, a CT scan would be a more sensitive examination for fractures. The craniocervical junction is normal. The visualized portions of the skull base and the posterior fossa are normal. The spinal cord demonstrates normal signal intensity on all sequences. Mild disc height loss at C4-C5, C5-C6 and C6-C7 with associated disc desiccation. No soft tissue abnormality is identified. Normal signal voids are present in the vertebral art eries. Mild generalized cerebral volume loss. C2-C3: There is mild disc bulge. Moderate left and moderate facet arthropathy. Moderate left neuroforaminal stenosis. No spinal canal stenosis. C3-C4: There is a mild disc bulge. Mild facet arthropathy, left greater than right. Mild uncovertebral joint disease. Mild left neuroforaminal stenosis. Mild spinal canal stenosis without deformity of the cord or cord signal alteration. C4-C5: There is a mild sequential disc bulge. Mild facet arthropathy. Mild uncovertebral joint disease. Mild right neural foraminal stenosis. Mild spinal canal stenosis. C5-C6: There is a posterior disc osteophyte complex. Mild facet arthropathy. Mild uncovertebral joint disease. Moderate right and mild left neuroforaminal stenosis. Mild spinal canal stenosis. C6-C7: There is a posterior disc osteophyte complex with central disc protrusion. Mild facet arthropathy. Mild uncovertebral joint disease. Mild bilateral neuroforaminal stenosis. Mild spinal canal stenosis without deformity of the cord or cord signal alteration. C7-T1: Disc is normal in configuration. No neuroforaminal or spinal canal stenosis. IMPRESSION: 1. Mild degenerative changes of the cervical spine as described in detail above. 2. Low T1 signal intensity involving the marrow which is nonspecific and may be associated with chronic anemia, obesity or smoking history. Assessment/Plan Assessment/Plan Impression: Small territory acute infarcts in the right perirolandic gyri, right montano rad iata, right middle frontal gyrus and medial right occipital lobe, with remote lacunar infarcts and chronic small vessel ischemic changes. All of these are consistent with small-vessel cerebrovascular disease rather than any type of embolic phenomenon (but still needs limited embolic work-up) Note thrombocytosis, erythrocytosis, leukocytosis Recommendations: Carotid Doppler studies Echocardiogram Aspirin Blood pressure control Cholesterol check and start statin Rehabilitation modalities Discussed risks after reduction and what to do if stroke symptoms return in the future (call EMS!) Defer to internal medicine whether he needs hematology consultation. He is not a smoker. Consider further cardiac work-up depending on results including transesophageal echocardiogram and LINQ recording. Thank you for letting me help with the patient's care. BROCK DORSEY MD Jun 22, 2020 17:39
--- NOTE | 2020-06-22 18:12 | RAD ---
BILATERAL DUPLEX CAROTID SONOGRAPHY History: Reason: CVA; LEFT UPPER EXTREMITY WEAKNESS Technique: Duplex sonography of the cervical portion of both carotid arteries was performed. Real-cris e grayscale, color flow Doppler, and Doppler spectral waveform analysis is performed. Findings: Right side: Peak systolic flow velocity of the CCA is 77 cm/sec. Peak systolic flow velocity of the ICA is 78 cm/sec. The ICA/CCA ratio is 1. Peak end diastolic flow velocity of the ICA is 20 cm/sec. The peak systolic velocity of the ECA is 206 cm/sec. Mild echogenic plaque in the carotid bulb. There is echogenic plaque in the proximal right ICA. Left side: Peak systolic flow velocity of the CCA is 52 cm/sec. Peak systolic flow velocity of the ICA is 102 cm/sec. The ICA/CCA ratio is 2. Peak end diastolic flow velocity of the ICA is 20 cm/sec. Peak systolic flow velocity of the ECA is 36 cm/sec. There is mild echogenic plaque in the carotid bulb. Vertebral arteries: Bilateral vertebral arteries demonstrate antegrade flow. IMPRESSION: No hemodynamically significant internal carotid artery stenosis is identified. PQRS Compliance Statement - Stenosis calculations for CT, MR and conventional angiography are based u [place] measurement of the distal ICA diameter in accordance with the NASCET methodology. Stenosis calcu lations for carotid ultrasound studies are derived from validated velocity criteria which are known t o correlate with the NASCET methodology. Electronically signed by: Naveed Ellison MD (06/22/2020 6:09 PM) [id number]
[2020-06-22] MEDS: hydroCHLOROthiazide 25 MG TABLET PO SCH (18:14)
[2020-06-22] MEDS: ATORVASTATIN CALCIUM 40 MG TABLET. PO SCH (20:48)
--- NOTE | 2020-06-22 21:40 | CARD ---
MR#: [id number] Date of Study: 06/22/2020 Ordering Physician: BROCK DORSEY, Referring Physician: BROCK DORSEY, Tech: Nhung Molina [facility] APPROVED REPORT EXAM: Two-dimensional and M-mode echocardiogram with Doppler and color Doppler. Other Information Quality : Good Technically limited study due to body habitus. INDICATION CVA/TIA Echo Enhancing Agent Agent/Amount Used: Agitated Saline 8mL 2D DIMENSIONS RVDd3.0 (2.9-3.5cm)Left Atrium(2D)4.3 (1.6-4.0cm) IVSd1.4 (0.7-1.1cm)Aortic Root(2D)3.9 (2.0-3.7cm) LVDd5.9 (3.9-5.9cm)LVOT Diameter2.2 (1.8-2.4cm) PWd1.3 (0.7-1.1cm)LVDs4.9 (2.5-4.0cm) FS (%) 16.3 %SV58.3 ml LVEF(%)33.7 (>50%) Aortic Valve AoV Peak Aleksander.123.0cm/sAoV VTI16.5cm AO Peak GR.6.1mmHgLVOT VTI 18.53cm AO Mean GR.3mmHgAVA (VTI)4.00cm2 Mitral Valve MV E Kjbkvfsn99.2cm/sMV DECEL [id number] MV A Kpojhvfj57.4cm/sE/A Ratio0.5 TDI Lateral E' P. V4.96cm/sMedial E' P. V3.28cm/s E/Lateral E'9.5E/Medial E'14.4 Tricuspid Valve TR P. [id number]/sRAP [id number] TR Peak Gr.[id number] LEFT VENTRICLE The Left Ventricle is mildly dilated. There is moderate to severe concentric left ventricular hypertr ophy. Left ventricle systolic function is mildly impaired. EF 45% Mild to moderate inferior and septa l hypokinesis. Tissue Doppler imaging reveals moderate left ventricular diastolic dysfunction. RIGHT VENTRICLE The right ventricle is normal size. The right ventricular systolic function is normal. ATRIA The left atrium is mildly dilated. The right atrium size is normal. The interatrial septum is intact with no evidence for an atrial septal defect or patent foramen ovale as noted on 2-D or Doppler imagi ng. Agitated saline contrast study is negative. AORTIC VALVE The aortic valve is calcified but opens well. Doppler and Color Flow revealed no significant aortic r egurgitation. There is no significant aortic valvular stenosis. MITRAL VALVE The mitral valve is calcified but opens well. Mitral annular calcification is mild. There is no evide nce of mitral valve prolapse. There is no mitral valve stenosis. Doppler and Color-flow revealed trac e mitral regurgitation. TRICUSPID VALVE The tricuspid valve is normal in structure and function. Doppler and Color Flow revealed trace tricus pid regurgitation. The PA pressure was estimated at 19 mmHg. There is no tricuspid valve stenosis. PULMONIC VALVE The pulmonic valve is not well visualized. Doppler and Color Flow revealed trace pulmonic valvular re gurgitation. There is no pulmonic valvular stenosis. GREAT VESSELS The aortic root is normal in size. The ascending aorta is not well seen. The IVC is normal in size an d collapses >50% with inspiration. PERICARDIAL EFFUSION There is no evidence of significant pericardial effusion. Critical Notification Critical Value: No <Conclusion> There is moderate to severe concentric left ventricular hypertrophy. Left ventricle systolic function is mildly impaired. EF 45% Mild to moderate inferior and septal hypokinesis. The interatrial septum is intact with no evidence for an atrial septal defect or patent foramen ovale as noted on 2-D or Doppler imaging. Agitated saline contrast study is negative. Technically difficult study - consider ARIN if clinical suspicion is high for crytopgenic stroke. Signed by : Shen Johnson, Electronically Approved : 06/22/2020 21:39:38
[2020-06-23] VITALS (14 sets, daily range): BP systolic 150–191; BP diastolic 85–112
[2020-06-23 08:00] LABS: CHOLESTEROL/HDL RATIO 6.8
[2020-06-23] MEDS ORDERED: DEXTROSE 50% 25 GM / 50ML DISP.SYRIN. IV PRN (08:45)
[2020-06-23] MEDS: hydroCHLOROthiazide 25 MG TABLET PO SCH (08:50)
[2020-06-23] MEDS: ASPIRIN ENTERIC COATED 325 MG TABLET.DR. PO SCH (08:50)
--- NOTE | 2020-06-23 08:56 | PDOC ---
PROGRESS NOTES Date of Service DATE: 06/23/20 TIME: 08:51 Assessment Problems Medical Problems: (1) Left arm weakness Status: Acute A cute lacunar infarcts in the right perirolandic gyri, right montano radiata, right middle frontal gyrus and medial right occipital lobe, with remote lacunar infarcts and chronic small vessel ischemic changes. All of these are consistent with small-vessel cerebrovascular disease rather than any type of embolic phenomenon Abnormal TTE Note thrombocytosis, erythrocytosis, leukocytosis Plan Aspirin Blood pressure control Statin Rehabilitation modalities Defer to internal medicine whether he needs hematology consultation. He is not a smoker. Cardiac consult, I do not think he needs a transesophageal echocardiogram Subjective Feels better Objective Vital Signs Date Time Temp Pulse Resp B/P (MAP) Pulse Ox O2 Delivery O2 Flow Rate FiO2 06/23/20 08:37 Room Air 06/23/20 08:00 67 15 183/104 (130) 95 06/23/20 07:20 98.4 98.4 Intake and Output 06/23/20 07:00 Intake Total 1033 ml Output Total 1050 ml Balance -17 ml Intake Oral 880 ml IV Total 153 ml Output Urine Total 1050 ml PHYSICAL EXAM Physical Exam: Alert. Oriented to time, place and person. PERRL. EOMI. CN: no focal findings. Muscle tone: normal. Muscle strength: 3/5 left arm DTR: 2+ Plantar reflex: flexor Gait: not examined in bed. Sensory exam: no abnormal findings. No cerebellar signs elicited. Review of Relevant I have reviewed the following items gm (where applicable) has been applied. Labs Laboratory Tests Test 06/22/20 09:42 06/22/20 12:25 06/22/20 12:30 06/22/20 12:40 White Blood Count 13.6 x10^3/uL (4.0-11.0) Red Blood Count 6.81 x10^6/uL (4.30-5.70) Hemoglobin 18.5 g/dL (13.0-17.5) Hematocrit 54.7 % (39.0-53.0) Mean Corpuscular Volume 80 fL (79-100) Mean Corpuscular Hemoglobin 27 pg (25-35) Mean Corpuscular Hemoglobin Concent 34 g/dL (31-37) Red Cell Distribution Width 14.7 % (11.5-14.5) Platelet Count 622 x10^3/uL (140-400) Neutrophils (%) (Auto) 81 % (31-73) Lymphocytes (%) (Auto) 8 % (24-48) Monocytes (%) (Auto) 9 % (0-9) Eosinophils (%) (Auto) 2 % (0-3) Basophils (%) (Auto) 1 % (0-3) Neutrophils # (Auto) 11.1 x10^3/uL (1.8-7.7) Lymphocytes # (Auto) 1.1 x10^3/uL (1.0-4.8) Monocytes # (Auto) 1.2 x10^3/uL (0.0-1.1) Eosinophils # (Auto) 0.2 x10^3/uL (0.0-0.7) Basophils # (Auto) 0.1 x10^3/uL (0.0-0.2) Prothrombin Time 14.2 SEC (11.7-14.0) Prothromb Time International Ratio 1.1 (0.8-1.1) Activated Partial Thromboplast Time 37 SEC (24-38) Sodium Level 137 mmol/L (136-145) Potassium Level 4.0 mmol/L (3.5-5.1) Chloride Level 100 mmol/L (98-107) Carbon Dioxide Level 26 mmol/L (21-32) Anion Gap 11 (6-14) Blood Urea Nitrogen 24 mg/dL (8-26) Creatinine 1.8 mg/dL (0.7-1.3) Estimated GFR (Cockcroft-Gault) 38.3 BUN/Creatinine Ratio 13 (6-20) Glucose Level 111 mg/dL (70-99) Calcium Level 9.1 mg/dL (8.5-10.1) Magnesium Level 2.2 mg/dL (1.8-2.4) Total Bilirubin 1.9 mg/dL (0.2-1.0) Aspartate Amino Transf (AST/SGOT) 17 U/L (15-37) Alanine Aminotransferase (ALT/SGPT) 20 U/L (16-63) Alkaline Phosphatase 93 U/L (46-116) Troponin I Quantitative 0.022 ng/mL (0.000-0.055) 0.034 ng/mL (0.000-0.055) MC-Btc-O-Type Natriuretic Peptide 2274 pg/mL (0-124) Total Protein 7.7 g/dL (6.4-8.2) Albumin 4.3 g/dL (3.4-5.0) Albumin/Globulin Ratio 1.3 (1.0-1.7) Thyroid Stimulating Hormone (TSH) 1.818 uIU/mL (0.358-3.74) Urine Collection Type Unknown Urine Color Yellow Urine Clarity Clear Urine pH 5.5 (<5.0-8.0) Urine Specific Oral 1.010 (1.000-1.030) Urine Protein Negative mg/dL (NEG-TRACE) Urine Glucose (UA) Negative mg/dL (NEG) Urine Ketones (Stick) Negative mg/dL (NEG) Urine Blood Negative (NEG) Urine Nitrite Negative (NEG) Urine Bilirubin Negative (NEG) Urine Urobilinogen Dipstick 0.2 mg/dL (0.2 mg/dL) Urine Leukocyte Esterase Negative (NEG) Urine RBC 0 /HPF (0-2) Urine WBC 0 /HPF (0-4) Urine Amorphous Sediment Present /HPF Urine Bacteria 0 /HPF (0-FEW) Urine Mucus Slight /LPF Urine Opiates Screen Neg (NEG) Urine Methadone Screen Neg (NEG) Urine Barbiturates Neg (NEG) Urine Phencyclidine Screen Neg (NEG) Urine Amphetamine/Methamphetamine Neg (NEG) Urine Benzodiazepines Screen Neg (NEG) Urine Cocaine Screen Neg (NEG) Urine Cannabinoids Screen Neg (NEG) Urine Ethyl Alcohol Neg (NEG) Ethyl Alcohol Level < 10 mg/dL (0-10) Test 06/22/20 16:15 06/23/20 07:15 Troponin I Quantitative < 0.017 ng/mL (0.000-0.055) Triglycerides Level 149 mg/dL (0-150) Cholesterol Level 198 mg/dL (0-200) LDL Cholesterol, Calculated 139 mg/dL (0-100) VLDL Cholesterol, Calculated 30 mg/dL (0-40) Non-HDL Cholesterol Calculated 169 mg/dL (0-129) HDL Cholesterol 29 mg/dL (40-60) Cholesterol/HDL Ratio 6.8 Laboratory Tests Test 06/22/20 09:42 06/22/20 12:25 06/22/20 12:30 06/22/20 12:40 White Blood Count 13.6 x10^3/uL (4.0-11.0) Red Blood Count 6.81 x10^6/uL (4.30-5.70) Hemoglobin 18.5 g/dL (13.0-17.5) Hematocrit 54.7 % (39.0-53.0) Mean Corpuscular Volume 80 fL (79-100) Mean Corpuscular Hemoglobin 27 pg (25-35) Mean Corpuscular Hemoglobin Concent 34 g/dL (31-37) Red Cell Distribution Width 14.7 % (11.5-14.5) Platelet Count 622 x10^3/uL (140-400) Neutrophils (%) (Auto) 81 % (31-73) Lymphocytes (%) (Auto) 8 % (24-48) Monocytes (%) (Auto) 9 % (0-9) Eosinophils (%) (Auto) 2 % (0-3) Basophils (%) (Auto) 1 % (0-3) Neutrophils # (Auto) 11.1 x10^3/uL (1.8-7.7) Lymphocytes # (Auto) 1.1 x10^3/uL (1.0-4.8) Monocytes # (Auto) 1.2 x10^3/uL (0.0-1.1) Eosinophils # (Auto) 0.2 x10^3/uL (0.0-0.7) Basophils # (Auto) 0.1 x10^3/uL (0.0-0.2) Prothrombin Time 14.2 SEC (11.7-14.0) Prothromb Time International Ratio 1.1 (0.8-1.1) Activated Partial Thromboplast Time 37 SEC (24-38) Sodium Level 137 mmol/L (136-145) Potassium Level 4.0 mmol/L (3.5-5.1) Chloride Level 100 mmol/L (98-107) Carbon Dioxide Level 26 mmol/L (21-32) Anion Gap 11 (6-14) Blood Urea Nitrogen 24 mg/dL (8-26) Creatinine 1.8 mg/dL (0.7-1.3) Estimated GFR (Cockcroft-Gault) 38.3 BUN/Creatinine Ratio 13 (6-20) Glucose Level 111 mg/dL (70-99) Calcium Level 9.1 mg/dL (8.5-10.1) Magnesium Level 2.2 mg/dL (1.8-2.4) Total Bilirubin 1.9 mg/dL (0.2-1.0) Aspartate Amino Transf (AST/SGOT) 17 U/L (15-37) Alanine Aminotransferase (ALT/SGPT) 20 U/L (16-63) Alkaline Phosphatase 93 U/L (46-116) Troponin I Quantitative 0.022 ng/mL (0.000-0.055) 0.034 ng/mL (0.000-0.055) UP-Hhy-L-Type Natriuretic Peptide 2274 pg/mL (0-124) Total Protein 7.7 g/dL (6.4-8.2) Albumin 4.3 g/dL (3.4-5.0) Albumin/Globulin Ratio 1.3 (1.0-1.7) Thyroid Stimulating Hormone (TSH) 1.818 uIU/mL (0.358-3.74) Urine Collection Type Unknown Urine Color Yellow Urine Clarity Clear Urine pH 5.5 (<5.0-8.0) Urine Specific Oral 1.010 (1.000-1.030) Urine Protein Negative mg/dL (NEG-TRACE) Urine Glucose (UA) Negative mg/dL (NEG) Urine Ketones (Stick) Negative mg/dL (NEG) Urine Blood Negative (NEG) Urine Nitrite Negative (NEG) Urine Bilirubin Negative (NEG) Urine Urobilinogen Dipstick 0.2 mg/dL (0.2 mg/dL) Urine Leukocyte Esterase Negative (NEG) Urine RBC 0 /HPF (0-2) Urine WBC 0 /HPF (0-4) Urine Amorphous Sediment Present /HPF Urine Bacteria 0 /HPF (0-FEW) Urine Mucus Slight /LPF Urine Opiates Screen Neg (NEG) Urine Methadone Screen Neg (NEG) Urine Barbiturates Neg (NEG) Urine Phencyclidine Screen Neg (NEG) Urine Amphetamine/Methamphetamine Neg (NEG) Urine Benzodiazepines Screen Neg (NEG) Urine Cocaine Screen Neg (NEG) Urine Cannabinoids Screen Neg (NEG) Urine Ethyl Alcohol Neg (NEG) Ethyl Alcohol Level < 10 mg/dL (0-10) Test 06/22/20 16:15 06/23/20 07:15 Troponin I Quantitative < 0.017 ng/mL (0.000-0.055) Triglycerides Level 149 mg/dL (0-150) Cholesterol Level 198 mg/dL (0-200) LDL Cholesterol, Calculated 139 mg/dL (0-100) VLDL Cholesterol, Calculated 30 mg/dL (0-40) Non-HDL Cholesterol Calculated 169 mg/dL (0-129) HDL Cholesterol 29 mg/dL (40-60) Cholesterol/HDL Ratio 6.8 Medications Current Medications Labetalol HCl (Normodyne Iv Push) 10 mg 1X ONCE IVP Last administered on 06/22/20at 10:26; Start 06/22/20 at 09:45; Stop 06/22/20 at 10:04; Status DC Nicardipine HCl 50 mg/Sodium Chloride 250 ml @ 25 mls/hr CONT PRN IV SEE I/O RECORD Last administered on 06/22/20at 12:38; Start 06/22/20 at 12:07; Stop 06/22/20 at 14:45; Status DC Aspirin (Dax Aspirin) 325 mg 1X ONCE PO Last administered on 06/22/20at 14:46; Start 06/22/20 at 13:30; Stop 06/22/20 at 13:31; Status DC Ondansetron HCl (Zofran) 4 mg PRN Q6HRS PRN IVP NAUSEA/VOMITING; Start 06/22/20 at 13:15 Al Hydroxide/Mg Hydroxide (Mylanta Plus Xs) 30 ml PRN Q3HRS PRN PO HEARTBURN / GAS; Start 06/22/20 at 13:15 Calcium Carbonate/ Glycine (Tums) 500 mg PRN Q3HRS PRN PO UPSET STOMACH; Start 06/22/20 at 13:15 Zolpidem Tartrate (Ambien) 5 mg PRN QHS PRN PO INSOMNIA, MAY REPEAT IN 1HR; Start 06/22/20 at 13:15 Acetaminophen (Tylenol) 650 mg PRN Q6HRS PRN PO Headaches, Temp > 101.5F; Start 06/22/20 at 13:15 Magnesium Hydroxide (Milk Of Magnesia) 2,400 mg PRN Q12HR PRN PO CONSTIPATION; Start 06/22/20 at 13:15 Bisacodyl (Dulcolax Supp) 10 mg PRN DAILY PRN [place] CONSTIPATION; Start 06/22/20 at 13:15 Enoxaparin Sodium (Lovenox 40mg Syringe) 40 mg Q24H SQ Last administered on 06/22/20at 14:00; Start 06/22/20 at 14:00 Ondansetron HCl (Zofran) 4 mg PRN Q8HRS PRN IV NAUSEA/VOMITING; Start 06/22/20 at 13:45; Stop 06/22/20 at 13:37; Status DC Nicardipine HCl 50 mg/Sodium Chloride 250 ml @ 0 mls/hr CONT PRN PRN IV PER PROTOCOL; Start 06/22/20 at 14:45 Atorvastatin Calcium (Lipitor) 80 mg QHS PO Last administered on 06/22/20at 20:48; Start 06/22/20 at 21:00 Acetaminophen (Tylenol) 650 mg PRN Q6HRS PRN PO MILD PAIN / TEMP > 100.3'F; Start 06/22/20 at 14:45 Aspirin (Ecotrin) 325 mg DAILYWBKFT PO Last administered on 06/22/20at 16:43; Start 06/22/20 at 15:00 Aspirin (Aspirin Rectal Supp) 300 mg PRN DAILY PRN [place] IF UNABLE TO TAKE PO; Start 06/22/20 at 14:45 Amlodipine Besylate (Norvasc) 10 mg DAILY PO Last administered on 06/22/20at 18:14; Start 06/22/20 at 17:30 Hydrochlorothiazide (Hydrodiuril) 25 mg DAILY PO Last administered on 06/22/20at 18:14; Start 06/22/20 at 17:30 Vitals/I & O Vital Sign - Last 24 Hours 06/22/20 06/22/20 06/22/20 06/22/20 10:03 10:26 10:27 10:57 Temp 97.3 97.3 Pulse 75 82 80 66 Resp 18 18 20 B/P (MAP) 243/125 (164) 252/154 223/115 (151) 215/123 (153) Pulse Ox 98 94 95 O2 Delivery Room Air Room Air Room Air 06/22/20 06/22/20 06/22/20 06/22/20 11:31 11:42 11:57 12:34 Pulse 68 74 74 76 Resp 18 20 20 B/P (MAP) 259/140 (179) 235/145 (175) 227/133 (164) 214/123 (153) Pulse Ox 95 94 96 O2 Delivery Room Air Room Air Room Air 06/22/20 06/22/20 06/22/20 06/22/20 12:39 12:58 13:10 14:20 Pulse 75 86 88 80 Resp 18 18 18 18 B/P (MAP) 210/123 (152) 199/111 (140) 195/110 (138) 218/113 (148) Pulse Ox 95 95 97 O2 Delivery Room Air Room Air Room Air 06/22/20 06/22/20 06/22/20 06/22/20 14:36 14:51 15:06 16:00 Temp 99.0 99.0 Pulse 88 96 102 75 Resp 20 18 20 16 B/P (MAP) 191/98 (129) 189/98 (128) 186/101 (129) 175/83 (113) Pulse Ox 95 100 99 98 O2 Delivery Room Air Room Air Room Air Room Air 06/22/20 06/22/20 06/22/20 06/22/20 17:00 18:00 18:14 19:00 Pulse 83 85 82 81 Resp 16 16 18 B/P (MAP) 145/63 (90) 163/81 (108) 163/81 165/98 (120) Pulse Ox 95 93 93 O2 Delivery Room Air Room Air Room Air 06/22/20 06/22/20 06/22/20 06/22/20 20:00 20:00 21:00 21:15 Temp 99.0 99.0 Pulse 78 70 Resp 18 16 B/P (MAP) 154/94 (114) 149/91 (110) 157/89 (111) Pulse Ox 94 96 O2 Delivery Room Air Room Air Room Air 06/22/20 06/22/20 06/23/20 06/23/20 22:00 23:00 00:00 00:00 Temp 98.3 98.3 Pulse 75 74 72 Resp 17 16 15 B/P (MAP) 159/88 (111) 156/93 (114) 163/94 (117) Pulse Ox 97 92 95 O2 Delivery Room Air Room Air Room Air Room Air 06/23/20 06/23/20 06/23/20 06/23/20 01:00 02:00 03:00 04:00 Temp 98.7 98.7 Pulse 63 75 69 73 Resp 16 16 14 16 B/P (MAP) 160/99 (119) 172/102 (125) 150/96 (114) 164/95 (118) Pulse Ox 95 94 94 97 O2 Delivery Room Air Room Air Room Air Room Air 06/23/20 06/23/20 06/23/20 06/23/20 04:00 05:00 06:00 07:20 Temp 98.4 98.4 Pulse 62 63 75 Resp 14 15 16 B/P (MAP) 177/112 (133) 180/103 (128) 176/108 (130) Pulse Ox 96 95 93 O2 Delivery Room Air Room Air Room Air Room Air 06/23/20 06/23/20 08:00 08:37 Pulse 67 Resp 15 B/P (MAP) 183/104 (130) Pulse Ox 95 O2 Delivery Room Air Room Air Intake and Output 06/22/20 06/22/20 06/23/20 15:00 23:00 07:00 Intake Total 640 ml 393 ml Output Total 1050 ml Balance -410 ml 393 ml Images BILATERAL DUPLEX CAROTID SONOGRAPHY History: Reason: CVA; LEFT UPPER EXTREMITY WEAKNESS Technique: Duplex sonography of the cervical portion of both carotid arteries was performed. Real-time grayscale, color flow Doppler, and Doppler spectral waveform analysis is performed. Findings: Right side: Peak systolic flow velocity of the CCA is 77 cm/sec. Peak systolic flow velocity of the ICA is 78 cm/sec. The ICA/CCA ratio is 1. Peak end diastolic flow velocity of the ICA is 20 cm/sec. The peak systolic velocity of the ECA is 206 cm/sec. Mild echogenic plaque in the carotid bulb. There is echogenic plaque in the proximal right ICA. Left side: Peak systolic flow velocity of the CCA is 52 cm/sec. Peak systolic flow velocity of the ICA is 102 cm/sec. The ICA/CCA ratio is 2. Peak end diastolic flow velocity of the ICA is 20 cm/sec. Peak systolic flow velocity of the ECA is 36 cm/sec. There is mild echogenic plaque in the carotid bulb. Vertebral arteries: Bilateral vertebral arteries demonstrate antegrade flow. IMPRESSION: No hemodynamically significant internal carotid artery stenosis is identified. Echocardiogram LEFT VENTRICLE The Left Ventricle is mildly dilated. There is moderate to severe concentric left ventricular hypertrophy. Left ventricle systolic function is mildly impaired. EF 45% Mild to moderate inferior and septal hypokinesis. Tissue Doppler imaging reveals moderate left ventricular diastolic dysfunction. RIGHT VENTRICLE The right ventricle is normal size. The right ventricular systolic function is normal. ATRIA The left atrium is mildly dilated. The right atrium size is normal. The interatrial septum is intact with no evidence for an atrial septal defect or patent foramen ovale as noted on 2-D or Doppler imaging. Agitated saline contrast study is negative. AORTIC VALVE The aortic valve is calcified but opens well. Doppler and Color Flow revealed no significant aortic regurgitation. There is no significant aortic valvular stenosis. MITRAL VALVE The mitral valve is calcified but opens well. Mitral annular calcification is mild. There is no evidence of mitral valve prolapse. There is no mitral valve stenosis. Doppler and Color-flow revealed trace mitral regurgitation. TRICUSPID VALVE The tricuspid valve is normal in structure and function. Doppler and Color Flow revealed trace tricuspid regurgitation. The PA pressure was estimated at 19 mmHg. There is no tricuspid valve stenosis. PULMONIC VALVE The pulmonic valve is not well visualized. Doppler and Color Flow revealed trace pulmonic valvular regurgitation. There is no pulmonic valvular stenosis. GREAT VESSELS The aortic root is normal in size. The ascending aorta is not well seen. The IVC is normal in size and collapses >50% with inspiration. PERICARDIAL EFFUSION There is no evidence of significant pericardial effusion. Critical Notification Critical Value: No <Conclusion> There is moderate to severe concentric left ventricular hypertrophy. Left ventricle systolic function is mildly impaired. EF 45% Mild to moderate inferior and septal hypokinesis. The interatrial septum is intact with no evidence for an atrial septal defect or patent foramen ovale as noted on 2-D or Doppler imaging. Agitated saline c ontrast study is negative. Technically difficult study - consider ARIN if clinical suspicion is high for crytopgenic stroke. Justicifation of Admission Dx: Justifications for Admission: Justification of Admission Dx: Yes Stroke - Ischemic: Stroke-Ischemic BROCK DORSEY MD Jun 23, 2020 08:56
--- NOTE | 2020-06-23 09:05 | PDOC ---
[facility] PROGRESS NOTE Date of Service DOS: DATE: 06/23/20 TIME: 08:46 Chief Complaint Chief Complaint A/P: Acute/subacute CVA - MRI confirms Small territory acute infarcts identified in the right perirolandic gyri, right montano radiata, right middle frontal gyrus and medial right occipital lobe. There is associated cytotoxic edema without significant mass effect or hemorrhage. Remote lacunar infarcts identified in the left montano radiata and bilateral thalami. Remote hemorrhagic infarct identified in the right caudate head. Acute CVA Hypertensive urgency RADHA Vasomotor nephropathy Elevated BUN Elevated troponin Plan: Consult placed to neurology; MRI obtained showed small territory acute infarcts identified in the right perirolandic gyri, right montano radiata, right middle frontal gyrus and medial right occipital lobe. There is associated cytotoxic edema without significant mass effect or hemorrhage. Permissive hypertension; labetalol 10 mg as needed; will gradually lower blood pressure after 24 hours with oral antihypertensives, goal 20-25% reduction Will initiate oral antihypertensive medications. BP goal <less than 220/120 mmHg Aspirin received in the ER. Lipid panel pending. IV fluids FEN - Cardiac diet PPX - Lovenox FULL CODE Dispo - inpatient for above There is moderate to severe concentric left ventricular hypertrophy. Left ventricle systolic function is mildly impaired. EF 45% Mild to moderate inferior and septal hypokinesis. The interatrial septum is intact with no evidence for an atrial septal defect or patent foramen ovale as noted on 2-D or Doppler imaging. Agitated saline contrast study is negative. Technically difficult study - consider ARIN if clinical suspicion is high for crytopgenic stroke. History of Present Illness History of Present Illness Mr Overton is a 65-year-old male with no stated past medical history who presented to the ER on 06/22/20 for evaluation of left arm weakness since 06/21/20 in the morning when he woke. He denies any injury or history of similar symptoms. Neurology was consulted in the ED and patient received an MRI showing small territory acute infarcts identified in the right perirolandic gyri, right montano radiata, right middle frontal gyrus and medial right occipital lobe; there is associated cytotoxic edema without significant mass effect or hemorrhage. Admitted to ICU for hypertensive emergency on cardene GTT. Echocardiogram with LVH and EF 45%. Carotid dopplers negative for occlusive disease. BP down a bit, off cardene GTT. 180/105. Still with a little bit of left hand weakness otherwise no other neurologic symptoms. Notes he stopped smoking 13 years ago and his son and daughter bedside note there family history is never any diabetes but does have hypertension coronary artery disease. No telemetry events overnight. Vitals/I&O Vitals/I&O: Vital Signs Date Time Temp Pulse Resp B/P (MAP) Pulse Ox O2 Delivery O2 Flow Rate FiO2 06/23/20 08:37 Room Air 06/23/20 08:00 67 15 183/104 (130) 95 06/23/20 07:20 98.4 98.4 I & O 06/22/20 06/22/20 06/23/20 15:00 23:00 07:00 Intake Total 640 ml 393 ml Output Total 1050 ml Balance -410 ml 393 ml Physical Exam General: Alert, Oriented X3, Cooperative Heart: Regular rate, Normal S1, Normal S2 Lungs: Clear Abdomen: Normal bowel sounds, Soft Extremities: No clubbing, No cyanosis Skin: No rashes, No breakdown Labs Labs: Laboratory Tests Test 06/22/20 09:42 06/22/20 12:25 06/22/20 12:30 06/22/20 12:40 White Blood Count 13.6 x10^3/uL (4.0-11.0) Red Blood Count 6.81 x10^6/uL (4.30-5.70) Hemoglobin 18.5 g/dL (13.0-17.5) Hematocrit 54.7 % (39.0-53.0) Mean Corpuscular Volume 80 fL (79-100) Mean Corpuscular Hemoglobin 27 pg (25-35) Mean Corpuscular Hemoglobin Concent 34 g/dL (31-37) Red Cell Distribution Width 14.7 % (11.5-14.5) Platelet Count 622 x10^3/uL (140-400) Neutrophils (%) (Auto) 81 % (31-73) Lymphocytes (%) (Auto) 8 % (24-48) Monocytes (%) (Auto) 9 % (0-9) Eosinophils (%) (Auto) 2 % (0-3) Basophils (%) (Auto) 1 % (0-3) Neutrophils # (Auto) 11.1 x10^3/uL (1.8-7.7) Lymphocytes # (Auto) 1.1 x10^3/uL (1.0-4.8) Monocytes # (Auto) 1.2 x10^3/uL (0.0-1.1) Eosinophils # (Auto) 0.2 x10^3/uL (0.0-0.7) Basophils # (Auto) 0.1 x10^3/uL (0.0-0.2) Prothrombin Time 14.2 SEC (11.7-14.0) Prothromb Time International Ratio 1.1 (0.8-1.1) Activated Partial Thromboplast Time 37 SEC (24-38) Sodium Level 137 mmol/L (136-145) Potassium Level 4.0 mmol/L (3.5-5.1) Chloride Level 100 mmol/L (98-107) Carbon Dioxide Level 26 mmol/L (21-32) Anion Gap 11 (6-14) Blood Urea Nitrogen 24 mg/dL (8-26) Creatinine 1.8 mg/dL (0.7-1.3) Estimated GFR (Cockcroft-Gault) 38.3 BUN/Creatinine Ratio 13 (6-20) Glucose Level 111 mg/dL (70-99) Calcium Level 9.1 mg/dL (8.5-10.1) Magnesium Level 2.2 mg/dL (1.8-2.4) Total Bilirubin 1.9 mg/dL (0.2-1.0) Aspartate Amino Transf (AST/SGOT) 17 U/L (15-37) Alanine Aminotransferase (ALT/SGPT) 20 U/L (16-63) Alkaline Phosphatase 93 U/L (46-116) Troponin I Quantitative 0.022 ng/mL (0.000-0.055) 0.034 ng/mL (0.000-0.055) ZR-Acv-W-Type Natriuretic Peptide 2274 pg/mL (0-124) Total Protein 7.7 g/dL (6.4-8.2) Albumin 4.3 g/dL (3.4-5.0) Albumin/Globulin Ratio 1.3 (1.0-1.7) Thyroid Stimulating Hormone (TSH) 1.818 uIU/mL (0.358-3.74) Urine Collection Type Unknown Urine Color Yellow Urine Clarity Clear Urine pH 5.5 (<5.0-8.0) Urine Specific [place] 1.010 (1.000-1.030) Urine Protein Negative mg/dL (NEG-TRACE) Urine Glucose (UA) Negative mg/dL (NEG) Urine Ketones (Stick) Negative mg/dL (NEG) Urine Blood Negative (NEG) Urine Nitrite Negative (NEG) Urine Bilirubin Negative (NEG) Urine Urobilinogen Dipstick 0.2 mg/dL (0.2 mg/dL) Urine Leukocyte Esterase Negative (NEG) Urine RBC 0 /HPF (0-2) Urine WBC 0 /HPF (0-4) Urine Amorphous Sediment Present /HPF Urine Bacteria 0 /HPF (0-FEW) Urine Mucus Slight /LPF Urine Opiates Screen Neg (NEG) Urine Methadone Screen Neg (NEG) Urine Barbiturates Neg (NEG) Urine Phencyclidine Screen Neg (NEG) Urine Amphetamine/Methamphetamine Neg (NEG) Urine Benzodiazepines Screen Neg (NEG) Urine Cocaine Screen Neg (NEG) Urine Cannabinoids Screen Neg (NEG) Urine Ethyl Alcohol Neg (NEG) Ethyl Alcohol Level < 10 mg/dL (0-10) Test 06/22/20 16:15 06/23/20 07:15 Troponin I Quantitative < 0.017 ng/mL (0.000-0.055) Triglycerides Level 149 mg/dL (0-150) Cholesterol Level 198 mg/dL (0-200) LDL Cholesterol, Calculated 139 mg/dL (0-100) VLDL Cholesterol, Calculated 30 mg/dL (0-40) Non-HDL Cholesterol Calculated 169 mg/dL (0-129) HDL Cholesterol 29 mg/dL (40-60) Cholesterol/HDL Ratio 6.8 Assessment and Plan Assessmemt and Plan Problems Medical Problems: (1) Left arm weakness Status: Acute Comment Review of Relevant I have reviewed the following items gm (where applicable) has been applied. Medications: Current Medications Medications (Trade) Dose Ordered Sig/Stefano Route PRN Reason Start Time Stop Time Status Last Admin Dose Admin Labetalol HCl (Normodyne Iv Push) 10 mg 1X ONCE IVP 06/22/20 09:45 06/22/20 10:04 DC 06/22/20 10:26 Nicardipine HCl 50 mg/Sodium Chloride 250 ml @ 25 mls/hr CONT PRN IV SEE I/O RECORD 06/22/20 12:07 06/22/20 14:45 DC 06/22/20 12:38 Aspirin (Dax Aspirin) 325 mg 1X ONCE PO 06/22/20 13:30 06/22/20 13:31 DC 06/22/20 14:46 Enoxaparin Sodium (Lovenox 40mg Syringe) 40 mg Q24H SQ 06/22/20 14:00 06/22/20 14:00 Atorvastatin Calcium (Lipitor) 80 mg QHS PO 06/22/20 21:00 06/22/20 20:48 Aspirin (Ecotrin) 325 mg DAILYWBKFT PO 06/22/20 15:00 06/22/20 16:43 Amlodipine Besylate (Norvasc) 10 mg DAILY PO 06/22/20 17:30 06/22/20 18:14 Hydrochlorothiazide (Hydrodiuril) 25 mg DAILY PO 06/22/20 17:30 06/22/20 18:14 Justifications for Admission Other Justification CVA, hypertensive urgency, RADHA AUSTIN MCCURDY MD Jun 23, 2020 09:05
[2020-06-23] MEDS: INSULIN LISPRO 300 UNITS/3 ML VIAL. SQ SCH ×2 (12:00→17:00)
--- NOTE | 2020-06-23 12:10 | PDOC2 ---
NICO SOTO BENCH MOVER 06/23/20 1210: CARDIAC CONSULT DATE OF CONSULT Date of Consult DATE: 06/23/20 TIME: 12:00 REASON FOR CONSULT Reason for Consult: CVA (not embolic) abnormal echo REFERRING PHYSICIAN Referring Physician: Dr. Hitchcock SOURCE Source: Chart review, Patient HISTORY OF PRESENT ILLNESS HISTORY OF PRESENT ILLNESS This is a 65 yo male who presented secondary to left upper extremity weakness that began upon awakening the day prior to arrival. MRI noted with multiple small acute infarcts in the right perirolandic gyri, right montano radiata, right middle frontal gyrus and medial right occipital lobe. Echo noted with moderate to severe LVH. Mild systolic dysfunction is noted with EF of 45%. Mild to moderate inferior septal hypokinesis is noted. No evidence of ASD or PFO noted. He denies any chest pain, palpitations, dizziness, diaphoresis, or nausea/vomiting. Left arm weakness persists. No known medial history. Does not have PCP. PAST MEDICAL HISTORY Cardiovascular: No pertinent hx Pulmonary: No pertinent hx GI: GERD Heme/Onc: No pertinent hx Hepatobiliary: No pertinent hx Psych: No pertinent hx Rheumatologic: No pertinent hx PAST SURGICAL HISTORY Past Surgical History: No pertinent history FAMILY HISTORY Family History: Heart Disease (father ) SOCIAL HISTORY Smoke: Quit ALCOHOL: none Drugs: None Lives: Alone CURRENT MEDICATIONS CURRENT MEDICATIONS Current Medications Medications (Trade) Dose Ordered Sig/Stefano Route PRN Reason Start Time Stop Time Status Last Admin Dose Admin Nicardipine HCl 50 mg/Sodium Chloride 250 ml @ 25 mls/hr CONT PRN IV SEE I/O RECORD 06/22/20 12:07 06/22/20 14:45 DC 06/22/20 12:38 Aspirin (Dax Aspirin) 325 mg 1X ONCE PO 06/22/20 13:30 06/22/20 13:31 DC 06/22/20 14:46 Enoxaparin Sodium (Lovenox 40mg Syringe) 40 mg Q24H SQ 06/22/20 14:00 06/22/20 14:00 Atorvastatin Calcium (Lipitor) 80 mg QHS PO 06/22/20 21:00 06/22/20 20:48 Aspirin (Ecotrin) 325 mg DAILYWBKFT PO 06/22/20 15:00 06/23/20 08:50 Amlodipine Besylate (Norvasc) 10 mg DAILY PO 06/22/20 17:30 06/23/20 08:51 Hydrochlorothiazide (Hydrodiuril) 25 mg DAILY PO 06/22/20 17:30 06/23/20 08:50 ALLERGIES ALLERGIES: Coded Allergies: No Known Drug Allergies (Unverified , 06/22/20) ROS Review of System 14 point ROS conducted with pertinent positives noted above in hPI PHYSICAL EXAM General: Alert, Oriented X3, Cooperative, No acute distress HEENT: Atraumatic Lungs: Clear to auscultation, Normal air movement Heart: Regular rate Abdomen: Soft, No tenderness Extremities: No edema, Normal pulses Skin: No significant lesion Neuro: Normal speech, Sensation intact, Other (left arm weakness ) MUSCULOSKELETAL: No deformity VITALS/I&O VITALS/I&O: Vital Signs Date Time Temp Pulse Resp B/P (MAP) Pulse Ox O2 Delivery O2 Flow Rate FiO2 06/23/20 10:49 98.3 69 18 155/101 (119) 96 Room Air 98.3 I & O 06/22/20 06/22/20 06/23/20 15:00 23:00 07:00 Intake Total 640 ml 393 ml Output Total 1050 ml Balance -410 ml 393 ml LABS Lab: Laboratory Tests Test 06/22/20 12:25 06/22/20 12:30 06/22/20 12:40 06/22/20 16:15 Troponin I Quantitative 0.034 ng/mL (0.000-0.055) < 0.017 ng/mL (0.000-0.055) Urine Collection Type Unknown Urine Color Yellow Urine Clarity Clear Urine pH 5.5 (<5.0-8.0) Urine Specific Frontier 1.010 (1.000-1.030) Urine Protein Negative mg/dL (NEG-TRACE) Urine Glucose (UA) Negative mg/dL (NEG) Urine Ketones (Stick) Negative mg/dL (NEG) Urine Blood Negative (NEG) Urine Nitrite Negative (NEG) Urine Bilirubin Negative (NEG) Urine Urobilinogen Dipstick 0.2 mg/dL (0.2 mg/dL) Urine Leukocyte Esterase Negative (NEG) Urine RBC 0 /HPF (0-2) Urine WBC 0 /HPF (0-4) Urine Amorphous Sediment Present /HPF Urine Bacteria 0 /HPF (0-FEW) Urine Mucus Slight /LPF Urine Opiates Screen Neg (NEG) Urine Methadone Screen Neg (NEG) Urine Barbiturates Neg (NEG) Urine Phencyclidine Screen Neg (NEG) Urine Amphetamine/Methamphetamine Neg (NEG) Urine Benzodiazepines Screen Neg (NEG) Urine Cocaine Screen Neg (NEG) Urine Cannabinoids Screen Neg (NEG) Urine Ethyl Alcohol Neg (NEG) Ethyl Alcohol Level < 10 mg/dL (0-10) Test 06/23/20 07:15 Triglycerides Level 149 mg/dL (0-150) Cholesterol Level 198 mg/dL (0-200) LDL Cholesterol, Calculated 139 mg/dL (0-100) H VLDL Cholesterol, Calculated 30 mg/dL (0-40) Non-HDL Cholesterol Calculated 169 mg/dL (0-129) H HDL Cholesterol 29 mg/dL (40-60) L Cholesterol/HDL Ratio 6.8 ASSESSMENT/PLAN ASSESSMENT/PLAN 1. Acute CVA; MRI with multiple small acute infarcts in the right perirolandic gyri, right montano radiata, right middle frontal gyrus and medial right occipital lobe 2. Dyslipidemia 3. RADHA vs CKD 4. Hypertensive urgency; remains elevated 5. Chronic systolic CHF 6. Cardiomyopathy; Echo with LVEF 45% with mild to moderate inferior septal hypokinesis Recommendations Secondary prevention ASA, statin therapy Rehab modalities Add coreg, lisinopril for HF optimization. Allow for higher baseline BP given acute stroke Will need to tailer meds to 4$ list as he does not have insurance SS consult Consider outpatient ischemic evaluation Supportive care BRIDGET TAVARES MD 06/23/20 2326: CARDIAC CONSULT ASSESSMENT/PLAN ASSESSMENT/PLAN Pt. seen and examined. Agree with above ONCOLOGY PHARMACIST note. Supportive care. Thanks NICO SOTO APRN Jun 23, 2020 12:10 BRIDGET TAVARES MD Jun 23, 2020 23:26
--- NOTE | 2020-06-23 15:04 | NUR ---
SS following for discharge planning. SS reviewed pt chart and discussed with pt RN. Pt is from home alone and is currently on room air. Self pay. Pt had left sided weakness. Cardiology consulted. PT/OT recommended home. Pt transferred to room 510. TALITA, Edelmira or Cookie, to follow.
[2020-06-23] MEDS: ENOXAPARIN 40 MG/0.4 ML SYRINGE. SQ SCH (15:19)
[2020-06-23] MEDS: CARVEDILOL 3.125 MG TABLET. PO SCH (17:28)
[2020-06-23] MEDS: ATORVASTATIN CALCIUM 40 MG TABLET. PO SCH (20:45)
[2020-06-24 03:00] VITALS: BP 138/89
[2020-06-24 07:00] VITALS: BP_SYST 92
[2020-06-24] MEDS: INSULIN LISPRO 300 UNITS/3 ML VIAL. SQ SCH ×2 (07:59→12:00)
[2020-06-24] MEDS ORDERED: LISINOPRIL 10 MG TABLET PO SCH (09:00)
--- NOTE | 2020-06-24 09:30 | NUR ---
TALITA following. Discussed with RN, pt from home, room air, cardiac diet. PT/OT recommending home health however pt does not have self pay. Dr. Hand spoke with pt RE [facility], pt would like this if possible. TALITA sent message to Dora Cronin RN to determine if [facility] would be an option. If unable to get [facility], pt can be given a script for outpatient therapy and can find an outpatient therapy office to provide therapy for self pay. RN notified. TALITA will continue to follow. Addendum: 06/24/20 at 1050 by MILTON SANON Dora Cronin RN is reviewing pt to determine if they can provide [facility]. TALITA will continue to follow. Addendum: 06/24/20 at 1228 by MILTON SANON Dora Cronin RN spoke with pt, pt [facility] stating he is going to stay with his son and his son plans on doing the physical therapy for his arm. Pt's son is supposed to visit with pt today, Roseanne will meet with pt's son to verify. Dr. Hand notified.
[2020-06-24] MEDS: hydroCHLOROthiazide 25 MG TABLET PO SCH (09:38)
[2020-06-24] MEDS: CARVEDILOL 3.125 MG TABLET. PO SCH (09:44)
[2020-06-24] MEDS: ASPIRIN ENTERIC COATED 325 MG TABLET.DR. PO SCH (09:44)
[2020-06-24 09:45] VITALS: BP 156/87
[2020-06-24 11:00] VITALS: BP 153/90
--- NOTE | 2020-06-24 13:05 | PDOC ---
PROGRESS NOTES Date of Service DATE: 06/24/20 TIME: 13:04 Assessment Problems Medical Problems: (1) Left arm weakness Status: Acute Acute lacunar infarcts in the right perirolandic gyri, right montano radiata, right middle frontal gyrus and medial right occipital lobe, with remote lacunar infarcts and chronic small vessel ischemic changes. All of these are consistent with small-vessel cerebrovascular disease rather than any type of embolic phenomenon Abnormal TTE Note thrombocytosis, erythrocytosis, leukocytosis Plan Aspirin Blood pressure control Statin Rehabilitation modalities Defer to internal medicine whether he needs hematology consultation. He is not a smoker. Cardiac consult appreciated Needs outpatient physical and occupational therapy, hopefully social media marketing analyst can arrange, he has no insurance Okay for discharge Needs to follow-up with an stretch machine operator Follow-up with neurology as needed Subjective No complaints, wants to go home Objective Vital Signs Date Time Temp Pulse Resp B/P (MAP) Pulse Ox O2 Delivery O2 Flow Rate FiO2 06/24/20 11:00 97.6 85 153/90 (111) 96 Room Air 97.6 06/24/20 09:45 20 Intake and Output 06/24/20 07:00 Intake Total 1280 ml Output Total 400 ml Balance 880 ml Intake Oral 1280 ml Output Urine Total 400 ml # Voids 4 PHYSICAL EXAM Alert. Oriented to time, place and person. PERRL. EOMI. CN: no focal findings. Muscle tone: normal. Muscle strength: 3/5 left arm DTR: 2+ Plantar reflex: flexor Gait: not examined in bed. Sensory exam: no abnormal findings. No cerebellar signs elicited. Review of Relevant I have reviewed the following items gm (where applicable) has been applied. Labs Laboratory Tests Test 06/22/20 16:15 06/23/20 07:15 06/23/20 12:37 06/23/20 16:48 Troponin I Quantitative < 0.017 ng/mL (0.000-0.055) Triglycerides Level 149 mg/dL (0-150) Cholesterol Level 198 mg/dL (0-200) LDL Cholesterol, Calculated 139 mg/dL (0-100) VLDL Cholesterol, Calculated 30 mg/dL (0-40) Non-HDL Cholesterol Calculated 169 mg/dL (0-129) HDL Cholesterol 29 mg/dL (40-60) Cholesterol/HDL Ratio 6.8 Glucose (Fingerstick) 127 mg/dL (70-99) 108 mg/dL (70-99) Test 06/23/20 20:43 06/24/20 07:27 06/24/20 11:27 Glucose (Fingerstick) 86 mg/dL (70-99) 120 mg/dL (70-99) 104 mg/dL (70-99) Laboratory Tests Test 06/23/20 16:48 06/23/20 20:43 06/24/20 07:27 06/24/20 11:27 Glucose (Fingerstick) 108 mg/dL (70-99) 86 mg/dL (70-99) 120 mg/dL (70-99) 104 mg/dL (70-99) Medications Current Medications Labetalol HCl (Normodyne Iv Push) 10 mg 1X ONCE IVP Last administered on 06/22/20at 10:26; Start 06/22/20 at 09:45; Stop 06/22/20 at 10:04; Status DC Nicardipine HCl 50 mg/Sodium Chloride 250 ml @ 25 mls/hr CONT PRN IV SEE I/O RECORD Last administered on 06/22/20at 12:38; Start 06/22/20 at 12:07; Stop 06/22/20 at 14:45; Status DC Aspirin (Tangoe Aspirin) 325 mg 1X ONCE PO Last administered on 06/22/20at 14:46; Start 06/22/20 at 13:30; Stop 06/22/20 at 13:31; Status DC Ondansetron HCl (Zofran) 4 mg PRN Q6HRS PRN IVP NAUSEA/VOMITING; Start 06/22/20 at 13:15 Al Hydroxide/Mg Hydroxide (Mylanta Plus Xs) 30 ml PRN Q3HRS PRN PO HEARTBURN / GAS; Start 06/22/20 at 13:15 Calcium Carbonate/ Glycine (Tums) 500 mg PRN Q3HRS PRN PO UPSET STOMACH; Start 06/22/20 at 13:15 Zolpidem Tartrate (Ambien) 5 mg PRN QHS PRN PO INSOMNIA, MAY REPEAT IN 1HR; Start 06/22/20 at 13:15 Acetaminophen (Tylenol) 650 mg PRN Q6HRS PRN PO Headaches, Temp > 101.5F; Start 06/22/20 at 13:15; Status Cancel Magnesium Hydroxide (Milk Of Magnesia) 2,400 mg PRN Q12HR PRN PO CONSTIPATION; Start 06/22/20 at 13:15 Bisacodyl (Dulcolax Supp) 10 mg PRN DAILY PRN VT CONSTIPATION; Start 06/22/20 at 13:15 Enoxaparin Sodium (Lovenox 40mg Syringe) 40 mg Q24H SQ Last administered on 06/23/20at 15:19; Start 06/22/20 at 14:00 Ondansetron HCl (Zofran) 4 mg PRN Q8HRS PRN IV NAUSEA/VOMITING; Start 06/22/20 at 13:45; Stop 06/22/20 at 13:37; Status DC Nicardipine HCl 50 mg/Sodium Chloride 250 ml @ 0 mls/hr CONT PRN PRN IV PER PROTOCOL; Start 06/22/20 at 14:45 Atorvastatin Calcium (Lipitor) 80 mg QHS PO Last administered on 06/23/20at 20:45; Start 06/22/20 at 21:00 Acetaminophen (Tylenol) 650 mg PRN Q6HRS PRN PO MILD PAIN / TEMP > 100.3'F; Start 06/22/20 at 14:45 Aspirin (Ecotrin) 325 mg DAILYWBKFT PO Last administered on 06/24/20at 09:44; Start 06/22/20 at 15:00 Aspirin (Aspirin Rectal Supp) 300 mg PRN DAILY PRN VT IF UNABLE TO TAKE PO; Start 06/22/20 at 14:45 Amlodipine Besylate (Norvasc) 10 mg DAILY PO Last administered on 06/23/20at 08:51; Start 06/22/20 at 17:30; Stop 06/23/20 at 15:05; Status DC Hydrochlorothiazide (Hydrodiuril) 25 mg DAILY PO Last administered on 06/24/20at 09:38; Start 06/22/20 at 17:30 Insulin Human Lispro (HumaLOG) 0-5 UNITS TIDWMEALS SQ ; Start 06/23/20 at 12:00 Dextrose (Dextrose 50%-Water Syringe) 12.5 gm PRN Q15MIN PRN IV SEE COMMENTS; Start 06/23/20 at 08:45 Carvedilol (Coreg) 3.125 mg BIDWMEALS PO Last administered on 06/24/20at 09:44; Start 06/23/20 at 17:00 Lisinopril (Prinivil) 10 mg DAILY PO Last administered on 06/24/20at 09:42; Start 06/24/20 at 09:00 Vitals/I & O Vital Sign - Last 24 Hours 06/23/20 06/23/20 06/23/20 06/23/20 14:52 17:28 19:00 19:45 Temp 97.3 98.2 97.3 98.2 Pulse 83 83 70 Resp 18 20 B/P (MAP) 157/92 (113) 157/92 162/85 (110) Pulse Ox 95 95 O2 Delivery Room Air Room Air Room Air 06/23/20 06/24/20 06/24/20 06/24/20 23:00 03:00 07:00 08:00 Temp 98.2 97.9 98.1 98.2 97.9 98.1 Pulse 65 68 68 Resp 20 20 18 B/P (MAP) 161/98 (119) 138/89 (105) 92/ Pulse Ox 96 95 93 O2 Delivery Room Air Room Air Room Air Room Air 06/24/20 06/24/20 06/24/20 06/24/20 09:42 09:44 09:45 11:00 Temp 97.6 97.6 Pulse 80 80 80 85 Resp 20 B/P (MAP) 156/87 156/87 156/87 (110) 153/90 (111) Pulse Ox 96 O2 Delivery Room Air Intake and Output 06/23/20 06/23/20 06/24/20 15:00 23:00 07:00 Intake Total 300 ml 480 ml 500 ml Output Total 400 ml Balance -100 ml 480 ml 500 ml Justicifation of Admission Dx: Justifications for Admission: Justification of Admission Dx: Yes Stroke - Ischemic: Stroke-Ischemic BROCK DORSEY MD Jun 24, 2020 13:05
--- NOTE | 2020-06-24 14:33 | PDOC ---
[facility] PROGRESS NOTE Date of Service DOS: DATE: 06/24/20 TIME: 14:29 Chief Complaint Chief Complaint A/P: Acute/subacute CVA - MRI confirms Small territory acute infarcts identified in the right perirolandic gyri, right montano radiata, right middle frontal gyrus and medial right occipital lobe. There is associated cytotoxic edema without significant mass effect or hemorrhage. Remote lacunar infarcts identified in the left montano radiata and bilateral thalami. Remote hemorrhagic infarct identified in the right caudate head. Acute CVA Hypertensive urgency RADHA Vasomotor nephropathy Elevated BUN Elevated troponin Plan: Consult placed to neurology; MRI obtained showed small territory acute infarcts identified in the right perirolandic gyri, right montano radiata, right middle frontal gyrus and medial right occipital lobe. There is associated cytotoxic edema without significant mass effect or hemorrhage. Permissive hypertension; labetalol 10 mg as needed; will gradually lower blood pressure after 24 hours with oral antihypertensives, goal 20-25% reduction Will initiate oral antihypertensive medications. BP goal <less than 220/120 mmHg Aspirin received in the ER. Lipid panel pending. IV fluids FEN - Cardiac diet PPX - Lovenox FULL CODE Dispo - inpatient for above There is moderate to severe concentric left ventricular hypertrophy. Left ventricle systolic function is mildly impaired. EF 45% Mild to moderate inferior and septal hypokinesis. The interatrial septum is intact with no evidence for an atrial septal defect or patent foramen ovale as noted on 2-D or Doppler imaging. Agitated saline contrast study is negative. Technically difficult study - consider ARIN if clinical suspicion is high for crytopgenic stroke. History of Present Illness History of Present Illness Mr Overton is a 65-year-old male with no stated past medical history who presented to the ER on 06/22/20 for evaluation of left arm weakness since 06/21/20 in the morning when he woke. He denies any injury or history of similar symptoms. Neurology was consulted in the ED and patient received an MRI showing small territory acute infarcts identified in the right perirolandic gyri, right montano radiata, right middle frontal gyrus and medial right occipital lobe; there is associated cytotoxic edema without significant mass effect or hemorrhage. Admitted to ICU for hypertensive emergency on cardene GTT. Echocardiogram with LVH and EF 45%. Carotid dopplers negative for occlusive disease. 06/23: BP down a bit, off cardene GTT. 180/105. Still with a little bit of left hand weakness otherwise no other neurologic symptoms. Notes he stopped smoking 13 years ago and his son and daughter bedside note there family history is never any diabetes but does have hypertension coronary artery disease. No telemetry events overnight. 06/24: Still some left arm weakness. Blood pressure improving. Due to the fact patient does not have insurance, discussed options of outpatient physical therapy (total of 3 sessions) or [facility]. Patient was agreeable to trying home health, but after discussion with social work nurse he declined. Currently patient's plans are to stay with his son and perform physical therapy on his arm at home with son. Greater than 30 minutes spent managing the discharge of this patient. Vitals/I&O Vitals/I&O: Vital Signs Date Time Temp Pulse Resp B/P (MAP) Pulse Ox O2 Delivery O2 Flow Rate FiO2 06/24/20 11:00 97.6 85 153/90 (111) 96 Room Air 97.6 06/24/20 09:45 20 I & O 06/23/20 06/23/20 06/24/20 15:00 23:00 07:00 Intake Total 300 ml 480 ml 500 ml Output Total 400 ml Balance -100 ml 480 ml 500 ml Physical Exam General: Alert, Oriented X3, Cooperative, No acute distress Heart: Regular rate Lungs: Clear Abdomen: Soft, No tenderness Extremities: No edema, Normal pulses, Other (Left upper extremity strength 3/5) Skin: No significant lesion Labs Labs: Laboratory Tests Test 06/23/20 16:48 06/23/20 20:43 06/24/20 07:27 06/24/20 11:27 Glucose (Fingerstick) 108 mg/dL (70-99) 86 mg/dL (70-99) 120 mg/dL (70-99) 104 mg/dL (70-99) Assessment and Plan Assessmemt and Plan Problems Medical Problems: (1) Left arm weakness Status: Acute Comment Review of Relevant I have reviewed the following items gm (where applicable) has been applied. Medications: Current Medications Medications (Trade) Dose Ordered Sig/Stefano Route PRN Reason Start Time Stop Time Status Last Admin Dose Admin Carvedilol (Coreg) 3.125 mg BIDWMEALS PO 06/23/20 17:00 06/24/20 09:44 Lisinopril (Prinivil) 10 mg DAILY PO 06/24/20 09:00 06/24/20 09:42 Justifications for Admission Other Justification CVA, hypertensive urgency, RADHA ALEJANDRO SAGASTUME MD Jun 24, 2020 14:33
[2020-06-24 15:00] VITALS: BP 139/73
[2020-06-24] MEDS: ENOXAPARIN 40 MG/0.4 ML SYRINGE. SQ SCH (15:53)
[2020-06-24] MEDS ORDERED: ASPI325T11 PO (16:18)
[2020-06-24] MEDS ORDERED: HYDR-2145 PO (16:18)
[2020-06-24] MEDS ORDERED: LISI10TA16 PO (16:18)
[2020-06-24] MEDS ORDERED: CARV3.1210 PO (16:18)
[2020-06-24] MEDS ORDERED: ATOR40TA59 PO (16:18)
--- NOTE | 2020-06-24 16:19 | PDOC ---
CARDIO Progress Notes Date and Time Date of Service 06/24/2020 Time of Evaluation 1330 Subjective Subjective: No Chest Pain, No shortness of breath, No Palpitations Vitals Vitals Vital Signs Date Time Temp Pulse Resp B/P (MAP) Pulse Ox O2 Delivery O2 Flow Rate FiO2 06/24/20 15:00 98.4 71 18 139/73 (95) 94 Room Air 98.4 Weight Weight [ ] Input and Output Intake and Output Intake and Output 06/24/20 07:00 Intake Total 1280 ml Output Total 400 ml Balance 880 ml Intake Oral 1280 ml Output Urine Total 400 ml # Voids 4 Laboratory Labs Laboratory Tests Test 06/23/20 16:48 06/23/20 20:43 06/24/20 07:27 06/24/20 11:27 Glucose (Fingerstick) 108 mg/dL (70-99) 86 mg/dL (70-99) 120 mg/dL (70-99) 104 mg/dL (70-99) Physical Exam HEENT: Neck Supple W Full Motion Chest: Symmetric LUNGS: Clear to Auscultation Heart: S1S2, RRR (SR) Abdomen: Soft N/T Extremities: No Calf Tenderness Neurology: alert, oriented, follow commands Assessment Assessment 1. Acute CVA; MRI with multiple small acute infarcts in the right perirolandic gyri, right montano radiata, right middle frontal gyrus and medial right occipital lobe 2. Dyslipidemia 3. RADHA vs CKD 4. Hypertensive urgency; better 5. Chronic systolic CHF 6. Cardiomyopathy; Echo with LVEF 45% with mild to moderate inferior septal hypokinesis Recommendations 1. Continue secondary prevention. ASA, statin therapy, Agree with current BP regimen 2. Pt unable to go to rehab or afford any home health due to lack of health insurance and financial constraints. He is planning to live with his son when discharge 3. Will need to tailer meds to 4$ list as he does not have insurance 4. Discussed follow ups and future stress test. I discussed treatment compliance and follow up and he will call our office when he is ready to follow 5. Social service following Justicifation of Admission Dx: Justifications for Admission: Justification of Admission Dx: Yes Stroke - Ischemic: Stroke-Ischemic DOROTHY AMS APRN Jun 24, 2020 16:19
--- NOTE | 2020-06-24 16:28 | PDOC3 ---
Discharge Summary Visit Information Date of Admission: Jun 22, 2020 Date of Discharge: Jun 24, 2020 Final Diagnosis Problems Medical Problems: (1) Left arm weakness Status: Acute Brief Hospital Course Allergies Allergies Coded Allergies Type Severity Reaction Last Updated Verified No Known Drug Allergies 06/22/20 No Vital Signs Vital Signs Date Time Temp Pulse Resp B/P (MAP) Pulse Ox O2 Delivery O2 Flow Rate FiO2 06/24/20 15:00 98.4 71 18 139/73 (95) 94 Room Air 98.4 Lab Results Laboratory Tests Test 06/23/20 07:15 06/23/20 12:37 06/23/20 16:48 06/23/20 20:43 Triglycerides Level 149 mg/dL (0-150) Cholesterol Level 198 mg/dL (0-200) LDL Cholesterol, Calculated 139 mg/dL (0-100) VLDL Cholesterol, Calculated 30 mg/dL (0-40) Non-HDL Cholesterol Calculated 169 mg/dL (0-129) HDL Cholesterol 29 mg/dL (40-60) Cholesterol/HDL Ratio 6.8 Glucose (Fingerstick) 127 mg/dL (70-99) 108 mg/dL (70-99) 86 mg/dL (70-99) Test 06/24/20 07:27 06/24/20 11:27 Glucose (Fingerstick) 120 mg/dL (70-99) 104 mg/dL (70-99) Laboratory Tests Test 06/23/20 16:48 06/23/20 20:43 06/24/20 07:27 06/24/20 11:27 Glucose (Fingerstick) 108 mg/dL (70-99) 86 mg/dL (70-99) 120 mg/dL (70-99) 104 mg/dL (70-99) Brief Hospital Course Mr. Mercado is a 65 old male who presented with left upper extremity weakness. Consultation placed to neurology. He had MRI brain that showed small territory acute infarcts identified in the right perirolandic gyri, right montano radiata, right middle frontal gyrus and medial right occipital lobe; there is associated cytotoxic edema without significant mass effect or hemorrhage; Remote lacunar infarcts identified in the left montano radiata and bilateral thalami; remote hemorrhagic infarct identified in the right caudate head; mild to moderate generalized cerebral volume loss. He was recommended secondary prevention with aspirin, statin. Echocardiogram was obtained showing moderate to severe concentric left ventricular hypertrophy, left ventricle systolic function was mildly impaired with EF 45%. Consultation was placed to cardiology and they recommended adding Coreg, lisinopril for heart failure optimization. Recommended outpatient ischemic evaluation. athletic turf worker discussed with patient options for rehabilitation modalities given medical insurance. Patient was offered [facility] outpatient rehab for total of 3 visits or [facility] home health. Patient declined both opting instead to go home with son to perform physical therapy at home. Discharge Information Condition at Discharge: Stable Disposition/Orders: D/C to Home Scheduled Aspirin (Aspirin Ec) 325 Mg Tablet.dr, 325 MG PO DAILYWBKFT for CVA, #30 Prescribed by: ALEJANDRO SAGASTUME MD on 06/24/20 1618 Atorvastatin Calcium (Atorvastatin Calcium) 40 Mg Tablet, 80 MG PO QHS for CVA, #30 Ref 2 Prescribed by: ALEJANDRO SAGASTUME MD on 06/24/20 1618 Carvedilol (Carvedilol ) 3.125 Mg Tablet, 3.125 MG PO BIDWMEALS for HTN, #60 Ref 1 Prescribed by: ALEJANDRO SAGASTUME MD on 06/24/20 1618 Hydrochlorothiazide (Hydrochlorothiazide Tablet ) 25 Mg Tablet, 25 MG PO DAILY for HTN, #30 Ref 2 Prescribed by: ALEJANDRO SAGASTUME MD on 06/24/20 1618 Lisinopril (Lisinopril) 10 Mg Tablet, 10 MG PO DAILY for HTN, #30 Ref 1 Prescribed by: ALEJANDRO SAGASTUME MD on 06/24/20 1618 Justicifation of Admission Dx: Justifications for Admission: Justification of Admission Dx: Yes Stroke - Ischemic: Stroke-Ischemic ALEJANDRO SAGASTUME MD Jun 24, 2020 16:28
--- NOTE | 2020-06-24 18:30 | NUR ---
Patient discharged home to son. Patient, son verbalized understanding of discharge instructions, including, but not limited to medications, diet, activity, continuing therapy exercises as recommended by therapy, follow up, precautions, and signs of stroke to look for, and to call EMS immediately if these should occur. Patient given prescriptions, copies in chart. Patient preferred pharmacy entered into system. Patient, son relate that he is going to have a regular physician. Patient also to follow up with Dr Hitchcock as needed. Patient indicated that his vision field was not different since admission, but exhibited partial hemianopia upper left quadrant. Patient related that he hadn't had a eye check for 10 years, but other martinez appear normal. Encouraged patient to follow up with Dr Hitchcock as well.
--- NOTE | 2020-06-24 18:30 | NUR ---
In reference to previous note, no deficit in vision martinez was noted on record previously.
--- NOTE | 2020-06-24 19:56 | NUR ---
Received call from [facility] [address] [facility]. Patient is getting his prescriptions filled there at this time.
== END 2020-06-24 18:30 | disposition home or self-care (01) | DRG 64 ==
LOC: ER 09:23 → 1 WEST ICU 13:19 → 5 NORTH 06-23 14:20
PROVIDERS: ADMIT Family Medicine; ATTEND Family Medicine
DX: I63.9 Cerebral infarction, unspecified (principal); G93.6 Cerebral edema; N17.0 Acute kidney failure with tubular necrosis; I16.1 Hypertensive emergency; I42.9 Cardiomyopathy, unspecified; I50.22 Chronic systolic (congestive) heart failure; E78.5 Hyperlipidemia, unspecified; D72.829 Elevated white blood cell count, unspecified; K21.9 Gastro-esophageal reflux disease without esophagitis; D75.1 Secondary polycythemia; Z79.899 Other long term (current) drug therapy; Z82.49 Family history of ischemic heart disease and other diseases of the circulatory system; Z86.73 Personal history of transient ischemic attack (TIA), and cerebral infarction without residual deficits; Z87.891 Personal history of nicotine dependence
CPT/HCPCS: 36415; 70450; 70551; 71045; 72141; 80053; 80061; 80307; 81001; 82962; 83735; 83880; 84443; 84484; 85025; 85610; 85730; 93005; 93306; 93880; 96365; 96366; 96375; G0480; J1650; J3490; J7050; 92610-GN; 97110-GO; 97110-GP; 97116-GP; 97530-GO; 97530-GP; 97535-GO; 99285-25; G0378; J7030